=== PATIENT | female | born 1980 | race Caucasian/White ===

== ENCOUNTER 2021-04-20 16:43 | Emergency (ER) | payer MEDICAID, OTHER, SELFPAY ==
--- NOTE | ~2021-04-20 | CT_ITS ---
EXAMINATION: CT ABDOMEN AND PELVIS WITHOUT CONTRAST CLINICAL INFORMATION: Right-sided flank COMPARISON: None TECHNIQUE: Multidetector volumetric imaging was performed from the superior aspect of the liver through the pubic symphysis. Sagittal and coronal reformatted images were obtained on the technologist's workstation. This CT examination was performed using dose optimization techniques as appropriate, variously including the following: *Automated exposure control *Adjustment of mA and/or kV according to patient size (this includes techniques or standardized protocols for targeted exams where dose is matched to indication/reason for exam; i.e. extremities or head) *Use of iterative reconstruction technique DLP: 300 mGy-cm FINDINGS: LUNG BASES: The visualized lung bases are unremarkable. LIVER, GALLBLADDER, AND BILIARY TREE: The liver is mildly enlarged measuring 17.2 cm in greatest dimension but normal in shape and attenuation. No focal hepatic lesion or biliary ductal dilatation is present. The gallbladder is unremarkable with no evidence of radiopaque gallstones, gallbladder wall thickening, or obvious pericholecystic inflammatory changes. PANCREAS: Unremarkable. SPLEEN: Unremarkable. ADRENAL GLANDS: Unremarkable. KIDNEYS AND URETERS: The kidneys are normal in size, shape, and attenuation. No hydronephrosis, hydroureter, or calculi seen. No perinephric stranding. BLADDER: Unremarkable. GASTROINTESTINAL TRACT: The small and large bowel are unremarkable aside from some scattered colonic diverticula without diverticulitis. The appendix is unremarkable. ABDOMINAL WALL: No significant hernia is appreciated. LYMPH NODES: No retroperitoneal lymphadenopathy VASCULAR: Unremarkable. PELVIC VISCERA: An anteverted uterus is present. An abnormal adnexal mass is not seen. Benign water density cyst is noted in the left ovary. OSSEOUS STRUCTURES: Unremarkable. CT/CT abdomen pelvis wo con IMPRESSION: No significant abnormality is seen to account for the patient's right-sided flank pain. Incidental findings as described above. Fleischner guidelines were followed.
[2021-04-20 18:05] VITALS: BP 108/69; PULSE 93; RESP 18; TEMP 36.8; O2SAT 100; BMI 19.5
[2021-04-20 19:20] LABS: Appearance Urine CLEAR; Color Urine YELLOW; Glucose Urine UA NEG (NEG); Leukocyte Esterase Urine 3+ (NEG); Nitrite Urine NEG (NEG); UACC Culture Trigger YES; Urine Blood 2+ (NEG); Urine Ketones 15 MG/DL (NEG); Urine Protein NEG (NEG-TRACE)
[2021-04-20 19:29] LABS: WBC Urine TNTC /HPF (0-4)
[2021-04-20 19:30] LABS: Bacteria Urine 2+ /LPF; Squamous Epithelial Cell Urine TRACE /LPF
[2021-04-20 19:38] LABS: COVID-19 Test Negative (Negative)
--- NOTE | 2021-04-20 20:36 | ED_ITS ---
HPI - Female Genitourinary General Chief complaint: Urogenital-Female Stated complaint: fever/ migrane Time Seen by Provider: 04/20/21 20:09 Source: patient Mode of arrival: ambulatory Limitations: no limitations History of Present Illness HPI Narrative: 40-year-old female no known medical history presents to the emergency department with complaints of fevers, chills, right-sided flank pain, urinary frequency, ur gency, dysuria x1 week. Patient tells me that her urine has also been a darker color than usual. She reports burning with urination, and urgency. She also reports right-sided flank pain nonradiating, severe an intermittent nature. She has no history of kidney stones. She tells me that she feels as though she had a fever however she did not have a thermometer to take her temperature. She does report subjective chills. She tells me overall she has not been feeling good. She tells me that she has been drinking a lot of water which seems to be helping her urinary burning however it is still present. She denies chest pain, shortness of breath, nausea, vomiting, abdominal pain, weakness, lethargy, vaginal bleeding, vaginal discharge. No concerns for STDs or per patient. MD elicited complaint: dysuria Onset (ago): week(s) (1) Female Urogenital Radiation: Non-Radiating and R Flank Severity scale (1-10): 10 Quality of pain: stabbing Consistency: intermittent Vaginal discharge: none Vaginal bleeding: none Urinary symptoms: Dysuria, Urgency and Frequency Exacerbating factors: none Relieving factors: other (drinking alot of water ) Associated symptoms: denies other symptoms Treatment prior to arrival: none Sexual activity: Yes Patient : No Related Data Previous Rx's Medication Instructions Recorded cefuroxime axetil 250 mg tablet 250 mg PO BID 7 Days #14 tab 04/20/21 Allergies Allergy/AdvReac Type Severity Reaction Status Date / Time No Known Allergies Allergy Verified 04/20/21 18:05 Review of Systems Review of Systems: Constitutional : No Weight loss, + Fever, + Chills, + Fatigue, + Malaise ENT/Mouth : No sore throat, No Rhinorrhea Eyes: No Eye Pain, No Swelling, No Redness Cardiovascular : No Chest Pain, No SOB, No Dyspnea on Exertion, No Orthopnea, No Edema, No Palpitations Respiratory : No Cough, No Sputum, No Wheezing Gastrointestinal : No Nausea, No Vomiting, No Diarrhea, No Constipation, No a bdominal Pain, No Hematochezia, No Melena Genitourinary : + Dysuria, + Urinary Frequency, No Hematuria, Musculoskeletal : No joint pain, No Myalgias, No Joint Swelling, + right sided flank pain Skin : No Skin Lesions, No rash Neuro : No Weakness, No Numbness, No Dizziness, No Headache Psych : No Anxiety/Panic, No Depression All other systems reviewed and are negative Yes all other systems are reviewed and are negative [facility] Past Medical History Attestation statement: The following information was validated with the patient. Source: old records reviewed and nursing notes reviewed Medical History (Updated 04/20/21 @ 20:42 by JOHN Goodson) Headache No pertinent past medical history Social History Social History Advance Directives: No Advance Directives Information Provided: Yes Patient : No Physical Exam Vital Signs: Vital Signs: Last Vital Signs Temp 98.2 F 04/20/21 18:05 Pulse 93 04/20/21 18:05 Resp 18 04/20/21 18:05 BP 108/69 04/20/21 18:05 Pulse Ox 100 04/20/21 18:05 BMI result Body Mass Index 19.5 VSS Appearance: Alert.? Oriented X3.? No acute distress.? Head: Normocephalic, atraumatic, no step-offs or deformities Eyes: Pupils equal, round and reactive to light.? ENT: Pharynx normal.? Neck: Normal inspection.? Neck supple.? CVS: Normal heart rate and rhythm.? Pulses normal.? Respiratory: No respiratory distress.? Breath sounds normal.? Abdomen: Soft and nontender.? Skin: Skin warm and dry.? Normal skin color.? Normal skin turgor.? Extremities: No lower extremity edema.? No calf ttp. 5/5 strength to bilateral upper and lower extremities Back: No midline tenderness, no C-spine tenderness, full range of motion, + mild discomfort over right flank with palpation Neuro: Oriented X 3.? No motor deficit.? No sensory deficit. CN 2-12 intact Course Reevaluation(s) Reevaluation #1: Patient's urine with a UTI. Will give Ceftin 250 mg p.o. b.i.d. x7 days. ABHAY negative. Labs and imaging pending. Clarified with patient if she has a headache she tells me she has a headache every day of her life. Today she has a mild headache it feels like her typical. No vision changes, dizziness, disequilibrium, no neck pain. She tells me this feels like her typical headache, no changes. At this time CT of the head is not needed. Denies trauma to the area. Not on blood thinners. Time: 20:41 Reevaluation #2: CT of abdomen and pelvis with no acute findings to explain patient's symptoms. At this time patient will be discharged home on Ceftin 250 mg p.o. b.i.d. x7 days to treat UTI. Advised to return with new or worsening symptoms. Time: 21:05 MDM - Female Genitourinary MDM Narrative Medical decision making narrative: 2037 40 yo f presents with symptoms consistent with UTI x1 week. Physical examination significant for right-sided flank pain. Vital signs stable. Plan at this time is to obtain imaging, labs, urine, urine . Will rule out pyelonephritis, UTI. Medical Records Attestation: I reviewed the patient's medical records. Lab Data Attestation: I reviewed the patient's lab results. Result diagrams: 04/20/21 20:41 04/20/21 20:41 Labs: Lab Results 04/20/21 04/20/21 04/20/21 Range/Units 19:09 19:09 20:41 WBC 8.5 (4.8-10.8) X10*3/uL RBC 3.86 L (4.20-5.50) X10*6/uL Hgb 11.8 L (12.0-16.0) g/dl Hct 35.4 L (37.0-47.0) % MCV 91.7 (80.0-98.0) fL MCH 30.6 (27.0-33.0) pg MCHC 33.3 (31.0-35.0) g/dl RDW 12.3 (11.0-16.0) % Plt Count 165 (160-400) X10*3/uL MPV 11.3 (9.4-12.3) fL Immature Gran % (Auto) 0.4 (0.0-0.4) % Neut % (Auto) 71.9 (45-73) % Lymph % (Auto) 15.6 L (20-40) % [place] % (Auto) 11.5 H (2-11) % Eos % (Auto) 0.4 (0-4) % Baso % (Auto) 0.2 (0-2) % Lymph # (Auto) 1.3 (1.2-4.9) X10*3/uL [place] # (Auto) 1.0 (0.1-1.2) X10*3/uL Eos # (Auto) 0.0 (0.0-0.4) X10*3/uL Baso # (Auto) 0.0 (0.0-0.2) X10*3/uL Abs Immat Gran (auto) 0.03 (0.00-0.03) X10*3/uL Absolute Neuts (auto) 6.1 (2.0-8.3) x10*3/uL Absolute Nucleated RBC 0.000 (0.0-0.012) X10*3/uL Nucleated RBC % (auto) 0.0 (0.0-0.2) /100WBC Sodium (135-145) mmol/L Potassium (3.3-5.1) mmol/L Chloride (96-108) mmol/L Carbon Dioxide (22-29) mmol/L Anion Gap (12-20) BUN (9-16) mg/dL Creatinine (0.5-1.4) mg/dL Estim Creat Clear Calc Estimated GFR Random Glucose (60-115) mg/dL Calcium (8.4-10.2) mg/dL Total Bilirubin (0.0-1.0) mg/dL AST (5-31) U/L ALT (0-31) U/L Alkaline Phosphatase (39-117) U/L Total Protein (6.5-8.0) g/dL Albumin (3.5-5.0) g/dL Beta HCG, Quant mIU/mL Urine Color YELLOW Urine Appearance CLEAR Urine pH 6.0 (5.0-8.0) Ur Specific [place] 1.010 (1.005-1.025) Urine Protein NEG (NEG-TRACE) MG/DL Urine Glucose (UA) NEG (NEG) MG/DL Urine Ketones 15 (NEG) MG/DL Urine Blood 2+ H (NEG) Urine Nitrite NEG (NEG) Ur Leukocyte Esterase 3+ H (NEG) Urine RBC 10-14 H (0) /HPF Urine WBC TNTC H (0-4) /HPF Ur Squamous Epith Cells TRACE /LPF Urine Bacteria 2+ /LPF COVID-19 ([facility]) Negative (Negative) COVID-19 Clin Com See Note 04/20/21 Range/Units 20:41 WBC (4.8-10.8) X10*3/uL RBC (4.20-5.50) X10*6/uL Hgb (12.0-16.0) g/dl Hct (37.0-47.0) % MCV (80.0-98.0) fL MCH (27.0-33.0) pg MCHC (31.0-35.0) g/dl RDW (11.0-16.0) % Plt Count (160-400) X10*3/uL MPV (9.4-12.3) fL Immature Gran % (Auto) (0.0-0.4) % Neut % (Auto) (45-73) % Lymph % (Auto) (20-40) % [place] % (Auto) (2-11) % Eos % (Auto) (0-4) % Baso % (Auto) (0-2) % Lymph # (Auto) (1.2-4.9) X10*3/uL [place] # (Auto) (0.1-1.2) X10*3/uL Eos # (Auto) (0.0-0.4) X10*3/uL Baso # (Auto) (0.0-0.2) X10*3/uL Abs Immat Gran (auto) (0.00-0.03) X10*3/uL Absolute Neuts (auto) (2.0-8.3) x10*3/uL Absolute Nucleated RBC (0.0-0.012) X10*3/uL Nucleated RBC % (auto) (0.0-0.2) /100WBC Sodium 138 (135-145) mmol/L Potassium 3.7 (3.3-5.1) mmol/L Chloride 103 (96-108) mmol/L Carbon Dioxide 26 (22-29) mmol/L Anion Gap 13 (12-20) BUN 7 L (9-16) mg/dL Creatinine 0.73 (0.5-1.4) mg/dL Estim Creat Clear Calc 93.7 Estimated GFR > 60 Random Glucose 95 (60-115) mg/dL Calcium 8.9 (8.4-10.2) mg/dL Total Bilirubin 1.0 (0.0-1.0) mg/dL AST 12 (5-31) U/L ALT 19 (0-31) U/L Alkaline Phosphatase 63 (39-117) U/L Total Protein 7.1 (6.5-8.0) g/dL Albumin 4.4 (3.5-5.0) g/dL Beta HCG, Quant < 2 mIU/mL Urine Color Urine Appearance Urine pH (5.0-8.0) Ur Specific [place] (1.005-1.025) Urine Protein (NEG-TRACE) MG/DL Urine Glucose (UA) (NEG) MG/DL Urine Ketones (NEG) MG/DL Urine Blood (NEG) Urine Nitrite (NEG) Ur Leukocyte Esterase (NEG) Urine RBC (0) /HPF Urine WBC (0-4) /HPF Ur Squamous Epith Cells /LPF Urine Bacteria /LPF COVID-19 ([facility]) (Negative) COVID-19 Clin Com Critical Care Time Critical Care Time Critical Care Time: No Discharge Plan Discharge Clinical Impression: Urinary tract infection Patient Disposition: Home, Self-Care Instructions: Urinary Tract Infection in Women (DC) Additional Instructions: Take your medications as prescribed. If you were prescribed antibiotics today, it is important that you take your medication to their entirety, do not skip any doses, do not finish them early. Follow-up with your primary care provider this week. Such as chest pain, shortness of breath, fevers, chills, nausea, vomiting, abdominal pain, headache, dizziness, vision changes Return to the emergency department with new or worsening symptoms. In case of emergency call 911 Mellette andrzej medicamentos seg?n lo prescrito. Si le recetaron antibi?ticos hoy, es importante que tome tomlinson medicamento en tomlinson totalidad, no se salte ninguna dosis, no los termine antes de tiempo. Seguimiento con tomlinson proveedor de atenci?n primaria esta semana. [place] dolor de pecho, dificultad para respirar, fiebre, escalofr?os, n?useas, v?mitos, dolor abdominal, dolor de mal, mareos, cambios en la visi?n Regrese al departamento de emergencias con s?ntomas nuevos o que empeoran. En lang de emergencia llama al 911 Prescriptions: New cefuroxime axetil 250 mg tablet 250 mg PO BID 7 Days Qty: 14 0RF Referrals: Physician,None [Primary Care Provider] - 2 days Stand Alone Forms: Work/School Release
[2021-04-20 20:59] LABS: MANUAL DIFF FLAG NO
[2021-04-20 21:01] LABS: Basophils Percent Auto 0.2 % (0-2); Eosinophils Percent Auto 0.4 % (0-4); Hematocrit 35.4 % (37.0-47.0); Hemoglobin 11.8 g/dl (12.0-16.0); Imm Gran Abs Auto 0.03 X10*3/uL (0.00-0.03); Imm Gran Pct Auto 0.4 % (0.0-0.4); Lymphocytes Absolute Auto 1.3 X10*3/uL (1.2-4.9); Lymphocytes Percent Auto 15.6 % (20-40); Mean Corpuscular HGB Conc 33.3 g/dl (31.0-35.0); Mean Corpuscular Hemoglobin 30.6 pg (27.0-33.0); Mean Corpuscular Volume 91.7 fL (80.0-98.0); Mean Platelet Volume 11.3 fL (9.4-12.3); Monocytes Percent Auto 11.5 % (2-11); Neutrophils Absolute Auto 6.1 x10*3/uL (2.0-8.3); Neutrophils Percent Auto 71.9 % (45-73); Platelet Count 165 X10*3/uL (160-400); Red Blood Count 3.86 X10*6/uL (4.20-5.50); Red Cell Distribution Width 12.3 % (11.0-16.0); White Blood Count 8.5 X10*3/uL (4.8-10.8)
[2021-04-20 21:14] LABS: Alanine Aminotransferase 19 U/L (0-31); Albumin Level 4.4 g/dL (3.5-5.0); Alkaline Phosphatase 63 U/L (39-117); Anion Gap 13 (12-20); Aspartate Amino Transferase 12 U/L (5-31); Blood Urea Nitrogen 7 mg/dL (9-16); Calcium 8.9 mg/dL (8.4-10.2); Carbon Dioxide 26 mmol/L (22-29); Chloride 103 mmol/L (96-108); Creatinine Clr Calc Pharmacy 93.7; Estimated Glomerular Filt Rate > 60; Glucose Random 95 mg/dL (60-115); Potassium 3.7 mmol/L (3.3-5.1); Sodium 138 mmol/L (135-145); Total Protein 7.1 g/dL (6.5-8.0)
[2021-04-20 21:28] LABS: HCG Quantitative < 2 mIU/mL
[2021-04-20 22:00] VITALS: BP 128/74; PULSE 82; RESP 16; TEMP 37.2; O2SAT 97
== END 2021-04-20 23:29 | disposition home or self-care (01) ==
PROVIDERS: Physician Assistant; Emergency Provider Internal Medicine
DX: N39.0 Urinary tract infection, site not specified (principal); N39.41 Urge incontinence; R50.9 Fever, unspecified; R30.0 Dysuria; R10.9 Unspecified abdominal pain; Z20.822 Contact with and (suspected) exposure to COVID-19; Z79.899 Other long term (current) drug therapy
CPT/HCPCS: 36415; 74176; 80053; 81001; 84702; 85025; 87086; 87088; 87186; 87635; 99284

== ENCOUNTER 2024-03-08 15:59 | Outpatient (AMB) | payer OTHER, SELFPAY ==
[2024-03-08 16:04] VITALS: BP 108/70; PULSE 79; O2SAT 99; BMI 22.6
--- NOTE | 2024-03-08 16:04 | A.OFFPC_ITS ---
Vital Signs 03/08/24 16:04 Height 5 ft 7 in Weight 144 lb BMI 22.6 BP 108/70 Blood Pressure Location Lt brachial Position Sitting Pulse 79 Pulse Source Pulse Oximeter Pulse Oximetry (%) 99 Oxygen Delivery Method Room Air Intake Visit Reasons: establish care Pigment Making Supervisor Required: Yes Pigment Making Supervisor Language: Nepali Accompanied by: Self / Same As Patient Allergies No Known Allergies Allergy (Verified 03/08/24 16:13) Medication List - Last Reconciled 03/08/24 by Rowan Astudillo PA-C No Known Home Meds Tobacco use date assessed: 03/08/24 Dental Screening Dental Screen Date: 03/08/24 Did you have a dental visit in the last 12 months?: Yes Did you have a dental problem in the last 6 months where you did not have access to dental care?: No Was dental information given to patient?: Patient has dentist HPI establish care HPI Details 43-year-old female coming to the office for the 1st time. Patient is not known to [facility] last 3 [place]. catastrophe claims supervisor was used for the duration of this visit. Patient previously has a PCP at [facility] last seen October 2023. She was seen gynecology through [facility] as well and had a Pap smear last year and a Nexplanon placed in 2021. She has had a mammogram and is up-to-date and we will be due later this month. She does mentioned having a small nodule on the right breast that is occasionally painful and does not grow a shrink. She has never had an abnormal mammogram in the past but is concerned because she has significant breast pain that has been going on for several years. She is not having pain at this moment. She also has concerns for easy bruising in the legs that take long periods of time to resolve. Also complaining varicose veins and has a history of a ablation to treat these veins. She also mentions having occasional headaches around her menses. [facility] Medical History (Updated 03/08/24 @ 16:30 by Rowan Astudillo PA-C) Headache No pertinent past medical history Surgical History History of Family History Mother No problems noted. Father No problems noted. Social History Housing: Apartment Alcohol intake: current Alcohol intake frequency: holidays/special occasions only Alcohol type: beer Patient Tobacco Use Status: Former Tobacco user Tobacco use type: Cigarette Smoked in Last 30 Days: No e-Cigarette/Vaping Use: Never Used Second Hand Smoke Exposure: No service: No Current occupational status: employed Current occupational exposures/hazards: No Cognitive needs: No Hearing needs: No Vision needs: Yes Female Reproductive History Menstrual control method: implanted (Nexplanon) Total pregnancies: 2 Full term: 2 History of abnormal pap smear: No History of STI: No Questionnaire PHQ-9 Over the last 2 weeks, how often have you been bothered by any of the following problems? 1. Little interest or pleasure in doing things: not at all 2. Feeling down, depressed, or hopeless: not at all 3. Trouble falling or staying asleep, or sleeping too much: not at all 4. Feeling tired or having little energy: not at all 5. Poor appetite or overeating: not at all 6. Feeling bad about yourself - or that you are a failure or have let yourself or your family down: not at all 7. Trouble concentrating on things, such as reading the newspaper or watching television: not at all 8. Moving or speaking so slowly that other people could have noticed. Or the opposite - being so fidgety or restless that you have been moving around a lot more than usual: not at all 9. Thoughts that you would be better off or of hurting yourself in some way: not at all Total score: 0 Depression Screening Interpretation: Negative Depression Screening Done: Yes Source: Developed by Drs. Leighton Swenson, Keeley Groves, Gaurav Ruiz and colleagues, with an educational charles from [employer]. Thrive Questionnaire Date Thrive assessed: 03/08/24 I am a: Patient What is your living situation today?: I have a steady place to live Within the past 12 months, did the food you bought not last and you didn't have the money to get more?: Never true Within the past 12 months, did you worry whether your food would run out before you got money to buy more?: Never true Do you have trouble paying for medicines?: No Do you have trouble getting transportation to medical appointments?: No Do you have trouble paying your heating and electricity bill?: No Do you have trouble taking care of your child, family member or friend?: No Do you have trouble with day-to-day activities such as bathing, preparing meals, shopping, managing finances, etc.?: No Are you currently unemployed and looking for a job?: No Are you interested in more education?: Yes Please select the resources that you would like help with: Food Currently or been in a relationship where the following occur: No concerns reported THRIVE Score: 0 AUDIT C Alcohol Use Questionnaire (AUDIT-C) 1. How often do you have a drink containing alcohol?: Monthly or less 2. How many drinks containing alcohol do you have on a typical day when you are drinking?: 1 or 2 3. How often do you have six or more drinks on one occasion?: Never Total Score: 1 CRUZITO-7 AMB Questionnaire CRUZITO-7 Date CRUZITO - 7 assessed: 03/08/24 Feeling nervous, anxious, or on edge: 0 = Not at all Not being able to stop or control worryin = Not at all Worrying too much about different things: 0 = Not at all Trouble relaxin = Not at all Being so restless that it is hard to sit still: 0 = Not at all Becoming easily annoyed or irritable: 0 = Not at all Feeling afraid as if something awful might happen: 0 = Not at all Total CRUZITO-7 score (0-4 normal; 5-9 mild; 10-14 moderate; 15-21 severe): 0 Source: Developed by Drs. Leighton Swenson, Keeley Groves, Gaurav Ruiz and colleagues, with an educational charles from [employer]. Review of Systems Const Denies body aches, Denies fatigue, Denies fever(s), Denies frequent falls, Reports headache(s) and Denies weakness Eyes Reports no additional complaints, Denies change in vision and Reports requires corrective lenses ENT Denies dysphagia, Denies dizziness, Denies facial pain, Reports headache(s), Denies nasal congestion and Denies odynophagia Card Denies chest pain, Denies syncope, Denies irregular heart rhythm, Denies leg edema, Denies lightheadedness and Denies dyspnea Resp Denies cough and Denies dyspnea GI Denies abdominal pain, Denies constipation, Denies dysphagia, Denies dyspepsia, Denies diarrhea, Denies nausea, Denies odynophagia and Denies vomiting Denies urinary frequency, Denies dysuria, Denies urinary hesitancy and Denies urinary urgency Musc Reports no additional complaints Skin/Breast Reports system reviewed and no additional complaints, except as documented Neuro Denies dizziness, Denies syncope, Denies frequent falls, Reports headache(s) and Denies weakness Psych Reports no additional complaints Endo Denies fatigue Shane/Lymph Reports easy bruising Physical exam (Primary Care) Vital Signs: Last Vital Signs Pulse 79 03/08/24 16:04 BP 108/70 03/08/24 16:04 Pulse Ox 99 03/08/24 16:04 Oxygen Delivery Method Room Air 03/08/24 16:04 BMI result Body Mass Index 22.6 Tobacco/Smoking Status: Tobacco use Status Tobacco use date assessed 03/08/24 03/08/24 16:10 Patient Tobacco Use Status Former Tobacco user 03/08/24 16:10 Tobacco use type Cigarette 03/08/24 16:10 e-Cigarette/Vaping Use Never Used 03/08/24 16:10 PHQ-9: PHQ-9 Score PHQ-9: Total score 0 03/09/24 09:01 Depression Screening Interpretation: Negative Thrive Assessment: Date of Thrive Assessment Date Thrive assessed 03/08/24 03/08/24 16:10 Currently or been in a relationship where the following occur: No concerns reported Const General: cooperative, healthy appearing, comfortable and no acute distress Orientation/consciousness: patient oriented x3 HENMT Head: Yes normocephalic Ears: hearing grossly normal bilaterally General nose exam: Normal external nose present Eyes General: appearance normal, both eyes and all related structures Conjunctivae: conjunctivae normal Neck Neck: Yes full ROM and Yes no lymphadenopathy Chest Other: No tenderness to palpation over bilateral breasts and no palpated nodules. Resp Effort & Inspection: normal respiratory effort Auscultation: clear to auscultation bilaterally, no crackles, no rales, no rhonchi and no wheezes Cardio Rate: regular rate Rhythm: regular rhythm Skin General skin exam: no rashes or lesions noted Neuro General: patient oriented x3 Gait exam (Neuro): Normal gait present Extrem Other: Small bruises on bilateral legs in various stages of healing. Mild Varicosities of bilateral extremities General: Yes normal to inspection, Yes full ROM and No edema Psych Affect: normal affect Attitude: cooperative Insight: Good insight present (Psych) Judgement: Good judgement present (Psych) Coding Level of Care Code New Pt Level 4 (89491) Diagnoses Breast pain N64.4 Varicose veins of both lower extremities I83.93 Easy bruising R23.3 Headache R51.9 Assessment & Plan Assessment & Plan (1) Breast pain: Code(s): N64.4 - Mastodynia Category: Medical Plan: Patient is due for mammogram severe however did inform patient we will do a diagnostic mammogram with ultrasound of the right breast for further evaluation. (2) Varicose veins of both lower extremities: Code(s): I83.93 - Asymptomatic varicose veins of bilateral lower extremities Category: Medical Plan: Patient complaining of varicose veins on bilateral lower extremities states he will occasionally itch. Advised patient to keep area well hydrated with topical creams and lotions. Advised the use of compression stockings if she will be standing for long periods of time and elevate the legs at the end of the day. Also encouraged regular exercise. On exam varicosities are very mild we will try conservative measures before referral to vascular surgery (3) Easy bruising: Code(s): R23.3 - Spontaneous ecchymoses Category: Medical Plan: Patient complaining of easy bruising states she does have a family history of bleeding disorder in her mother. Ordered for blood work for further evaluation and can consider referral to Hematology. (4) Headache: Code(s): R51.9 - Headache, unspecified Category: Medical Plan: Patient complaining of occasional headaches around menses using Tylenol and ibuprofen as needed for pain. Continue with this pain medication and follow up if symptoms worsen or become more frequent. Plan This note was constructed using voice recognition software. While every effort has been made to ensure accuracy and mgmt analyst, still areas may have been included sometimes these areas may affect the content or meeting of the given symptoms. Total time spent caring for the patient today was 30 minutes. This includes time spent before the visit reviewing the chart, time spent during the visit, and time spent after the visit and documentation. Orders: Orders US breast RT complete 03/08/24 N64.4 - Mastodynia Mixing Study (PT/PTT) 03/08/24 R23.3 - Spontaneous ecchymoses Vitamin B12 and Folate 03/08/24 Z00.00 - Encounter for general adult medical examination without abnormal findings Lipid Panel 03/08/24 Z13.220 - Encounter for screening for lipoid disorders MM tomosynthesis diagnostic RT 03/08/24 N64.4 - Mastodynia Prothrombin Time INR 03/08/24 R23.3 - Spontaneous ecchymoses Complete Blood Count Auto Diff 03/08/24 Z00.00 - Encounter for general adult medical examination without abnormal findings Comprehensive Met. Panel 03/08/24 Z00.00 - Encounter for general adult medical examination without abnormal findings Free T4 (Free Thyroxine) 03/08/24 Z00.00 - Encounter for general adult medical examination without abnormal findings TSH reflex Free T4 03/08/24 Z00.00 - Encounter for general adult medical examination without abnormal findings Vitamin D 25-OH Total 03/08/24 Z00.00 - Encounter for general adult medical examination without abnormal findings BILLY Reflex Titer and Pattern 03/08/24 R23.3 - Spontaneous ecchymoses Referrals PSYCHIATRIC CLINICAL NURSE SPECIALIST Referral Z12.4 - Encounter for screening for malignant neoplasm of cer vix Medications: Discontinued cefuroxime axetil Discontinued Reason: Patient Completed Course 250 mg PO BID 7 days 14 tabs 0RF
== END 2024-03-08 16:39 | disposition home or self-care (01) ==
DX: N64.4 Mastodynia (principal); I83.93 Asymptomatic varicose veins of bilateral lower extremities; R23.3 Spontaneous ecchymoses; R51.9 Headache, unspecified

== ENCOUNTER → 2024-03-08 15:59 | Outpatient (BNVA) | payer OTHER, SELFPAY | DX: N64.4 Mastodynia (principal); I83.93 Asymptomatic varicose veins of bilateral lower extremities; R23.3 Spontaneous ecchymoses; R51.9 Headache, unspecified | CPT/HCPCS: 99202 ==

== ENCOUNTER 2024-03-23 06:04 | Outpatient (REF) | payer OTHER, SELFPAY ==
[2024-03-23 06:19] LABS: MANUAL DIFF FLAG NO
[2024-03-23 07:03] LABS: Basophils Percent Auto 0.6 % (0-2); Eosinophils Absolute Auto 0.3 X10*3/uL (0.0-0.4); Eosinophils Percent Auto 4.5 % (0-4); Hemoglobin 13.3 g/dl (12.0-16.0); Imm Gran Abs Auto 0.03 X10*3/uL (0.00-0.03); Imm Gran Pct Auto 0.5 % (0.0-0.4); Lymphocytes Absolute Auto 1.6 X10*3/uL (1.2-4.9); Lymphocytes Percent Auto 25.3 % (20-40); Mean Corpuscular HGB Conc 33.3 g/dl (31.0-35.0); Mean Corpuscular Hemoglobin 30.2 pg (27.0-33.0); Mean Corpuscular Volume 90.7 fL (80.0-98.0); Mean Platelet Volume 10.7 fL (9.4-12.3); Monocytes Absolute Auto 0.5 X10*3/uL (0.1-1.2); Monocytes Percent Auto 7.4 % (2-11); Neutrophils Absolute Auto 3.9 x10*3/uL (2.0-8.3); Neutrophils Percent Auto 61.7 % (45-73); Platelet Count 181 X10*3/uL (160-400); Red Blood Count 4.41 X10*6/uL (4.20-5.50); Red Cell Distribution Width 12.7 % (11.0-16.0); White Blood Count 6.3 X10*3/uL (4.8-10.8)
[2024-03-23 07:09] LABS: Prothrombin Time 11.9 SEC (10.9-12.4)
[2024-03-23 07:24] LABS: Partial Thromboplastin Time 32.7 SEC (26.0-36.8)
[2024-03-23 07:28] LABS: Alanine Aminotransferase 28 U/L (0-31); Albumin Level 4.5 g/dL (3.5-5.0); Alkaline Phosphatase 52 U/L (39-117); Anion Gap 10 (12-20); Aspartate Amino Transferase 21 U/L (5-31); Bilirubin Total 0.9 mg/dL (0.0-1.0); Blood Urea Nitrogen 12 mg/dL (9-16); Carbon Dioxide 23 mmol/L (22-29); Chloride 111 mmol/L (96-108); Cholesterol 188 mg/dL (<200); Estimated Glomerular Filt Rate > 60; Glucose Random 90 mg/dL (60-115); HDL Cholesterol 72 mg/dL (>40); LDL Cholesterol Calculated 106 mg/dL (<100); Potassium 4.3 mmol/L (3.3-5.1); Sodium 140 mmol/L (135-145); Total Protein 7.3 g/dL (6.5-8.0); Triglycerides 53 mg/dL (<150)
[2024-03-23 07:42] LABS: Free T4 (Free Thyroxine) 1.12 ng/dL (0.71-1.85); TSH reflex Free T4 1.35 uIU/mL (0.32-4.0)
[2024-03-23 07:51] LABS: Folate 12.1 ng/mL (> or = 4.0); Vitamin B12 622 pg/mL (200-900)
[2024-03-26 15:54] LABS: Anti Nuclear Antibody Screen NEGATIVE (NEGATIVE)
== END 2024-03-23 06:05 | disposition home or self-care (01) ==
LOC: HO.LAB 06:04
DX: Z00.00 Encounter for general adult medical examination without abnormal findings (principal); R23.3 Spontaneous ecchymoses; Z13.220 Encounter for screening for lipoid disorders
CPT/HCPCS: 36415; 80053; 80061; 82306; 82607; 82746; 84439; 84443; 85025; 85610; 85611; 85730; 85732; 86038

== ENCOUNTER 2024-04-26 13:30 | Outpatient (REF) | payer OTHER, SELFPAY ==
--- NOTE | ~2024-04-26 | US_ITS ---
EXAMINATION: MM DIAGNOSTIC DIGITAL BREAST TOMOSYNTHESIS, BILATERAL Limited right breast ultrasound. CLINICAL INFORMATION: Right breast pain and palpable lump. COMPARISON: Mammography: Comparison is made with relevant prior exams. TECHNIQUE: Digital breast mammography with tomosynthesis is performed in both the craniocaudal and mediolateral oblique views along with computer-aided detection (CAD). Limited right breast ultrasound. FINDINGS: The breasts are heterogeneously dense, which may obscure small masses (ACR BI-RADS breast composition Category c). Left: There are no significant masses, abnormal calcifications, or other abnormalities. Right: Triangular marker at the site of pain in the upper outer breast without underlying abnormality. BB palpable marker in the central outer breast at the site of palpable lump without underlying abnormality. No suspicious calcifications masses or other abnormal findings. Targeted color Doppler ultrasound demonstrates a vascular hypoechoic oval solid mass at 9:00 1 cm from nipple in the area the patient's palpable lump measuring 8 x 5 x 7 mm. There is an incidental oval hypoechoic located cyst versus solid mass at 7:00 2 cm from nipple measuring 5 x 4 x 2 mm. Otherwise scanning from 7-11 o'clock demonstrates normal fibroglandular breast tissue. Results are provided to the patient at time of visit by the technologist. US/US breast RT limited mamm only IMPRESSION: Left: Negative. Right: 1. Solid mass in the retroareolar region correlating with the patient's palpable lump. Recommend ultrasound-guided core needle biopsy at this time for confirmation. The findings and recommendations were discussed with the patient the procedure will be scheduled. 2. Solid mass versus complicated cyst at 7:00 2 cm from nipple. Recommend 6 month follow-up ultrasound for further evaluation of stability. ASSESSMENT: BI-RADS BI-RADS 4 - Suspicious finding RECOMMENDATION: Biopsy recommended This patient's information was entered into a reminder system with a target due date for their next mammogram. Electronically signed by: Darleen Baltazar DO 04/26/2024 03:05 PM MA[facility]
--- OUTSIDE RECORDS SUMMARY | 2024-04-26 16:08 | XMS_ITS | Clinical Summary ---
Author Organization [facility] Address [address] [place] [address] Care Team Providers Care Product Specialist Name Role Phone Ana Paula Grier PA-C Primary Care Provider + [phone] Source Comments PLEASE NOTE, if this patient is a minor, it may be UNLAWFUL to discuss sensitive information that is contained in these records (such as FAMILY PLANNING, MENTAL HEALTH or SUBSTANCE ABUSE) with the minor patient's parent or other person without the patient's specific authorization.[facility] Allergies No known active allergies Medications acetaminophen (TYLENOL 8 HOUR) 650 mg CR tabletIndications:Chr onic left shoulder pain Take 1 Tablet by mouth every 8 (eight) hours as needed for pain 60 Tablet 10/07/19 22 Active lidocaine (LMX) 4 % creamIndications: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 Apply topically as needed for pain 15 g 10/07/19 22 Active ibuprofen 800 mg tabletIndications:Dis location of temporomandibular joint, subsequent encounter Take 1 Tablet by mouth 3 (three) times daily as needed for pain 30 Tablet 05/23/19 24 Active aspirin-acetaminophen -caffeine (EXCEDRIN MIGRAINE) 250-250-65 mg per tabletIndications:Oth er migraine without status migrainosus, not intractable Take 1 Tablet by mouth every 6 (six) hours as needed for pain 30 Tablet 12/28/19 24 Active ciclopirox (PENLAC) 8 % solutionIndications:O nychomycosis Apply topically nightly at bedtime 6.6 mL 1 12/28/19 24 Active methocarbamoL (ROBAXIN) 500 mg tabletIndications:Mus freeman spasms of neck Take 1 Tablet by mouth 3 (three) times daily 20 Tablet 12/28/19 24 Active Active Problems Problem Noted Date Diagnosed Date Food insecurity 12/28/2023 Migraine without status migrainosus, not intract able 12/28/2023 Muscle spasms of neck 12/28/2023 Frequent UTI 12/27/2022 Nexplanon insertion 12/27/2022 Irregular periods 12/27/2022 Immunizations Name Administration Dates Next Due Flu, Preservative Free 11/10/2022 HPV 9 (Gardasil) 02/15/2023 Td(adult),2 Lf tetanus toxoid,preservative free 11/10/2022 Family History Medical History Relation Name Comments Thrombocytopenia Mother Relation Name Status Comments Brother Alive Father Alive Mother Sister Alive Social History Tobacco Use Types Packs/Day Years Used Date Smoking Tobacco: Never Smokeless Tobacco: Never Tobacco Cessation:Counseling Given: Yes Alcohol Use Standard Drinks/Week Comments Never 0 (1 standard drink = 0.6 oz pur e alcohol) Social Connections Answer Date Recorded Connectedness 1 12/28/2023 Financial Resource Strain Answer Date R ecorded Financial Resource Strain 1 2023 Stress Answer Date Recorded Stress 1 12/28/2023 Physical Activity Answer Date Recorded Physical Activity 0 09/02/2021 Food Insecurity Answer Date Recorded Food 2 12/28/2023 Transportation Needs Answer Date Record ed Transportation 1 12/28/2023 Housing Stability Answer Date Recorded Housing 1 12/28/2023 Safety and Environment Answer Date Gray rded Safety 1 12/28/2023 Utilities Answer Date Recorded Utilities 2 12/28/2023 Employment Answer Date Recorded Stress 0 10/06/2021 Comments No Sex and Gender Information Value Date Recorded Sex Assigned at Female 10/06/2021 6:52 AM PDT Legal Sex Female 8:36 AM PDT Gender Identity Female 10/06/2021 6:52 AM PDT Sexual Orientation Straight 10/06/2021 6: 52 AM PDT Last Filed Vital Signs Vital Sign Reading Time Taken Comments Blood Pressure 108/68 12/28/2023 4:03 PM EDT Pulse 64 12/28/2023 4:03 PM EDT Temperature 37.2 ??C (98.9 ??F) 12/28/2023 4:03 PM ED T Respiratory Rate 16 12/28/2023 4:03 PM EDT Oxygen Saturation 92% 12/28/2023 4:03 PM EDT Inhaled Oxygen Concentration - - Weight 64.8 kg (142 lb 12.8 oz) 12/28/2023 4:03 PM EDT Height 167.6 cm (5' 6 ) 12/28/2023 4:03 PM EDT Body Mass Index 23.05 12/28/2023 4:03 PM EDT Plan of Treatment Upcoming Encounters Date Type Department Care Team (Late st Contact Info) Description 06/11/2024 3:40 PM EDT Office Visit [address] [phone] Elise Puga [address] [place] [address] Health Maintenance Due Date Last Done Comments HPV Screening 1982 Imm-Hepatitis B (1 of 3 - 19+ 3-dose series) 2001 Imm-DTaP/Tdap/Td (1 - Tdap) 11/11/2022 11/10/2022 [id number] (2 - 2023- season) 2023 02/04/2022 Annual Preventive Care Visit 02/16/2024 02/15/2023 Alcohol and Drug Screen 02/29/2024 05/23/19 24, 11/10/2022, 10/06/2021 Depression Annual Screen 02/29/2024 05/23/2023, 10/29 Breast Cancer Screening (Mammogram) 03/22/2024 03/22/2023, 10/26/2021 Imm-Influenza (#1) 2024 11/10/2022 Postponed from 10/30/2023 (Patient postponement) Dental BW 09/27/2024 09/26/2023, 03/01, 09/16/2022, Additional history exists Dental Examination 09/27/2024 09/26/2023, 0 03/24/2023, 09/16/2022, Additional history exists Dental Perio Charting 09/27/2024 09/26/2023 , 03/24/2023, 09/16/2022, Additional history exists Dental Prophy 09/27/2024 09/26/2023, 03/01, 09/16/2022, Additional history exists Diabetes Screening 10/06/2024 10/06/2021, 10/06/2021 Hypertension Screening (#1) 12/27/2024 Relationship Safety Screening/Counseling 12/27/2024 12/28/2023, 11/10/2022, 10/06/2021 Tobacco Screening 12/27/2024 12/28/2023 Pap Smear 02/15/2026 02/15/2023 Lipid Screening 10/06/2026 10/06/2021 Cervical Cancer Screening 02/16/2028 Pap + HPV 02/16/2028 Dental FMX/Pano 09/27/2028 09/26/2023, 09/10/2021 HIV Screening Completed 10/06/2021 Hepatitis C Screening Completed 10/06/2021 Cervical Ablation/Cold-Knife Conization Discontinued Cervical Cryotherapy Discontinued Colposcopy Discontinued Endometrial Biopsy Discontinued Excision/Leep Discontinued HPV Genotyping Discontinued Vaginal Pap Discontinued Vulvoscopy Discontinued Procedures Procedure Name Priority Date/Time Associated Diagnosis Comments COMP PERIODONTAL EVALUATION - NEW/EST PATIENT Routine 09/26/2023 4:20 PM EDT Encounter for dental examination [facility] PANORAMIC RADIOGRAPHIC IMAGE Routine 09/26/2023 4:20 PM EDT Encounter for dental examination [facility] Defective dental church BITEWINGS - FOUR RADIOGRAPHIC IMAGES Routine 09/26/2023 4:20 PM EDT Encounter for dental examination [facility] PROPHYLAXIS - ADULT Routine 09/26/2023 4 :20 PM EDT Encounter for dental examination [facility] PERIODIC ORAL EVALUATION ESTABLISHED PATIENT Routine 09/26/2023 4:20 PM EDT Encounter for dental examination [facility] REFERRAL FOR MAMMOGRAM Routine 03/22/2023 3:00 AM EST Screening mammogram for breast cancer THINPREP IMAGING PAP REFLEX HPV MRNA E6/E7, CT/GT (Q) Routine 02/15/2023 4:01 PM EST Encounter for Papanicolaou smear of vagina as part of routine gynecological examination Encounter for screening for human papillomavirus (HPV) HIV 1/2 AG & AB W/RFLX (4TH GEN) Routine 10/06/2021 10:30 AM EDT Encounter to establish care HEPATITIS C AB W/RFLX HCV RNA, QT, RT PCR Routine 10/06/2021 10:30 AM EDT Encounter to establish care COMPREHENSIVE METABOLIC PANEL Routine 10/06/2021 10:30 AM EDT Encounter to establish care LIPIDS W RFLX TO DIRECT LDL Routine 10/06/2021 10:30 AM EDT Encounter to establish care from Last 3 Months or Most Recently Relevant to Health Maintenance Results * REFERRAL FOR MAMMOGRAM (03/22/2023 3:00 AM EST) 03/22/2023 3:00 AM EST us Slmi Quesada MD IMG RFL MAMMO Edited Result - Final * THINPREP IMAGING PAP REFLEX HPV MRNA E6/E7, CT/GT (Q) (02/15/2023 4:01 PM EST) CHLAMYDIA TRACHOMATIS RNA, TMA NOT DETECTED NOT DETECTED [facility] NEISSERIA GONORRHOEAE RNA, TMA NOT DETECTED NOT DETECTED [facility] COMMENT [facility] CLINICAL INFORMATION See Note [facility] [employer] Comment:Routine exam LMP See Note [employer] [employer] Comment:[id number] PREV. PAP See Note [facility] Comment:NONE GIVEN PREV. BX See Note [facility] Comment:NONE GIVEN SOURCE See Note [facility] [employer] Comment:Cervix STATEMENT OF ADEQUACY See Note [facility] Comment: Satisfactory for evaluation. Endocervical/transformation zone component present. INTERPRETATION/RESU LT See Note [employer] Comment: Cytology Results: Negative for intraepithelial lesion or malignancy. COMMENT See Note [facility] Comment: This Pap test has been evaluated with computer assisted technology. PERFUSIONIST See Note [employer] Comment: YP, CT(ASCP) CT screening location: [address] ??[address] COMMENT [employer] Swab Cervix uteri structure / Unknown 02/15/2023 4:01 PM EST 02/17/2023 1:45 AM EST Narrative [facility] [place] - 2 DIAGNOSTICS [facility] - 02/22/2023 11:57 AM EST EXPLANATORY NOTE: The Pap is a screening test for cervical cancer. It is not a diagnostic test and is subject to false negative and false positive results. It is most reliable when a satisfactory sample, regularly obtained, is submitted with relevant clinical findings and history, and when the Pap result is evaluated along with historic and current clinical information. The analytical performance characteristics of this assay, when used to test SurePath(TM) specimens have been determined by [employer]. The modifications have not been cleared or approved by the FDA. This assay has been validated pursuant to the CLIA regulations and is used for clinical purposes. For additional information, please refer to https://DNsolution.[employer]/faq/BIF795 (This link is being provided for information/ educational purposes only.) Slim Quesada MD LAB - NO BLOOD DRAW Final Result [facility] [address] [address], [facility] [place] [email or web address] [address] [place] [phone] * HEPATITIS C AB W/RFLX HCV RNA, QT, RT PCR (10/06/2021 10:30 AM EDT) HEPATITIS C ANTIBODY NON-REACT RUBY NON-REACT RUBY [facility] SIGNAL TO CUT-OFF 0.15 <1.00 [facility] Comment: HCV antibody was non-reactive. There is no laboratory evidence of HCV infection. In most cases, no further action is required. However, if recent HCV exposure is suspected, a test for HCV RNA (test code 87835) is suggested. For additional information please refer to http://education.[employer]/faq/OZG38x0 (This link is being provided for informational/ educational purposes only.) Blood Blood / Unknown 10/06/2021 1 0:30 AM EDT 10/06/2021 10:30 AM EDT Ana Paula Grier PA-C LAB - BLOOD DRAW Final Resul t Performing Organization Address [facility] Co de Phone Number [facility] [address] [address], [facility] [address] [phone] * HIV 1/2 AG & AB W/RFLX (4TH GEN) (10/06/2021 10:30 AM EDT) HIV AG/AB, 4TH GEN NON-REAC TIVE NON-REAC TIVE [facility] Comment: HIV-1 antigen and HIV-1/HIV-2 antibodies were not detected. There is no laboratory evidence of HIV infection. PLEASE NOTE: This information has been disclosed to you from records whose confidentiality may be protected by state law. ??If your state requires such protection, then the state law prohibits you from making any further disclosure of the information without the specific written consent of the person to whom it pertains, or as otherwise permitted by law. A general authorization for the release of medical or other information is NOT sufficient for this purpose. ?? For additional information please refer to http://education.[employer]/faq/AUI474 (This link is being provided for informational/ educational purposes only.) The performance of this assay has not been clinically validated in patients less than 2 years old. Blood Blood / Unknown 10/06/2021 1 0:30 AM EDT 10/06/2021 10:30 AM EDT Ana Paula Grier PA-C LAB - BLOOD DRAW Final Resul t Performing Organization Address [facility]/ZIP Co de Phone Number [facility] [address] [address], [facility] [address] [phone] * LIPIDS W RFLX TO DIRECT LDL (10/06/2021 10:30 AM EDT) CHOLESTEROL, TOTAL 143 <200 mg/dL [facility] HDL CHOLESTEROL 71 > OR = 50 mg/dL [facility] TRIGLYCERIDES 36 <150 mg/dL [facility] LDL-CHOLESTEROL 62 99 mg/dL (calc) [facility] Comment: Reference range: <100 Desirable range <100 mg/dL for primary prevention; ?? <70 mg/dL for patients with CHD or diabetic patients with > or = 2 CHD risk factors. LDL-C is now calculated using the Ashkan calculation, which is a validated novel method providing better accuracy than the Friedewald equation in the estimation of LDL-C. Cameron ESPINOZA et al. YASIR. 2013;310(19): 0866-9335 (http://education.[employer]/faq/PVF217) CHOL/HDLC RATIO 2.0 <5.0 (calc) [facility] NON-HDL CHOLESTEROL 72 <130 mg/dL (calc) [facility] Comment: For patients with diabetes plus 1 major ASCVD risk factor, treating to a non-HDL-C goal of <100 mg/dL (LDL-C of <70 mg/dL) is considered a therapeutic option. Blood Blood / Unknown 10/06/2021 1 0:30 AM EDT 10/06/2021 10:30 AM EDT us Ana Paula Grier PA-C LAB - BLOOD DRAW Final Resul t [facility] [address] [address], [facility] [address] [address] * (ABNORMAL) COMPREHENSIVE METABOLIC PANEL (10/06/2021 10:30 AM EDT) GLUCOSE 82 65 - 99 mg/dL [facility] Comment: ?Fasting reference interval UREA NITROGEN (BUN) 9 7 - 25 mg/dL [facility] CREATININE (blood) 0.68 0.50 - 0.97 mg/dL [facility] EGFR 114 > OR = 60 mL/min/1 .73m2 [facility] Comment: The eGFR is based on the CKD-EPI 2020 equation. To calculate the new eGFR from a previous Creatinine or Cystatin C result, go to https://www.kidney.org/professionals/ kdoqi/gfr%5Fcalculator BUN/CREATININE RATIO NOT APPLICABLE 6 - 22 [facility] SODIUM 138 135 - 146 mmol/L [facility] POTASSIUM 4.3 3.5 - 5.3 mmol/L [email or web address] CHLORIDE 106 98 - 110 mmol/L [facility] CARBON DIOXIDE 26 20 - 32 mmol/L [email or web address] CALCIUM 9.4 8.6 - 10.2 mg/dL [facility] [place] [email or web address] PROTEIN, TOTAL 6.6 6.1 - 8.1 g/dL [facility] ALBUMIN 4.6 3.6 - 5.1 g/dL [facility] [email or web address] GLOBULIN 2.0 1.9 - 3.7 g/dL (calc) [facility] ALBUMIN/GLOBUL IN RATIO 2.3 1.0 - 2.5 (calc) [email or web address] BILIRUBIN, TOTAL 1.5(H) 0.2 - 1.2 mg/dL [facility] ALKALINE PHOSPHATASE 44 31 - 125 U/L [facility] AST 14 10 - 30 U/L [facility] ALT 20 6 - 29 U/L [facility] Blood Blood / Unknown 10/06/2021 1 0:30 AM EDT 10/06/2021 10:30 AM EDT Ana Paula Grier PA-C LAB - BLOOD DRAW Edited Resu lt - Final [employer] [facility] [address] [address], [facility] [address] [address] from Last 3 Months or Most Recently Relevant to Health Maintenance Insurance [place] [employer] [address] ACO Member Subscriber Plan / Payer (Ef fective 2023-Present) Name:Rashmi Busby Relation to Subscriber:Self Name:Rashmi Busby Payer ID:[id number] Group ID:Not on file Type:Managed Medicaid Address: [place] [id number] Care Teams Product Specialist Relationship Specialty Start Date End Date Ana Paula Grier PA-C [address] [place] [id number] PCP - General Internal Medicine 10/06/21
== END 2024-04-26 13:31 | disposition home or self-care (01) ==
LOC: HO.MAMMO 13:30
DX: N64.4 Mastodynia (principal); N63.15 Unspecified lump in the right breast, overlapping quadrants
CPT/HCPCS: 76642; 77062; 77066

== ENCOUNTER → 2024-04-26 14:30 | Outpatient (BNV) | payer OTHER, SELFPAY | PROVIDERS: Visit Provider Internal Medicine | DX: Z12.31 Encounter for screening mammogram for malignant neoplasm of breast (principal); N64.4 Mastodynia; N60.01 Solitary cyst of right breast; N63.41 Unspecified lump in right breast, subareolar | CPT/HCPCS: 76642; 77062; 77066 ==

== ENCOUNTER 2024-05-17 10:28 | Outpatient (AMB) | payer OTHER, SELFPAY ==
--- NOTE | 2024-05-17 10:34 | A.OFFVIS_ITS ---
Vital Signs 3 05/17/24 10:40 Height 5 ft 7 in Weight 143 lb 4.807 oz BMI 22.4 Respiration 16 Pulse 78 Intake Visit Reasons: US R breast biopsy retroareolar mass 9 o'clock Intake Note: Patient is seen in office for ultrasound biopsy CONSULT right breast 9 o'clock retroaerolar mass. Pt c/o: feels a lump on the right breast for aprox 20 yrs, currently is painful, minimal increase, denies prior bx, no prior breast surgeries, yes to breast feeding with no complication, no fm hx breast cancer, first child age 29 Bx sched:05/23/24 @10am Immigration Services Officer Required: Yes Immigration Services Officer Language: Statistical Clerk Advertising Services: Immigration Services Officer Present Immigration Services Officer Name: Carmen CHAUDHARI Information Interpreted: non-clinical & clinical Silk Trimmer: Silk Trimmer Present Accompanied by: Spouse Allergies No Known Allergies Allergy (Verified 05/17/24 10:41) Medication List - Last Reconciled 05/17/24 by Ritchie Barnard MD No Known Home Meds HPI Comments Details: 44-year-old female patient presenting with a palpable right breast mass located in the 9 o'clock position. She reports 1st noted the lump approximately 20 years ago. She feels the lump may have increased in size slightly since then. She occasionally has some discomfort associated with the lesion but denies any skin changes. She denies any previous history of breast problems or breast surgery. Subsequent mammogram and ultrasound revealed a density in the 9 o'clock position noted by ultrasound approximately 1 cm from the nipple measuring 8 x 5 x 7 mm. In addition a cyst in the 7 o'clock position approximately 2 cm from the nipple was identified measuring 5 x 4 x 2 mm. An ultrasound-guided core biopsy was recommended and has been scheduled for 05/23/2024 at the [facility]. She denies a family history of breast problems or breast surgery. She is 2 para 2, her 1st child was born when she was 29. She reports breast-feeding both children. [facility] Medical History (Updated 05/17/24 @ 10:55 by Ritchie Barnard MD) Headache No pertinent past medical history Surgical History History of Family History Mother No problems noted. Father No problems noted. Social History Housing: Apartment Alcohol intake: current Alcohol intake frequency: holidays/special occasions only Alcohol type: beer Patient Tobacco Use Status: Former Tobacco user Tobacco use type: Cigarette e-Cigarette/Vaping Use: Never Used Second Hand Smoke Exposure: No service: No Current occupational status: employed Current occupational exposures/hazards: No Cognitive needs: No Hearing needs: No Vision needs: Yes Female Reproductive History Menstrual Total pregnancies: 2 Full term: 2 Review of Systems Const All systems reviewed & are unremarkable except as noted in HPI and below Denies chills, Denies fever(s), Denies headache(s), Denies poor appetite and Denies weakness ENT Denies headache(s) Card Denies chest pain, Denies irregular heart rhythm, Denies palpitations and Denies dyspnea Resp Denies cough, Denies excessive phlegm production and Denies dyspnea GI Denies abdominal pain, Denies bloating, Denies change in bowel habits, Denies constipation, Denies heartburn, Denies diarrhea, Denies nausea and Denies vomiting Denies urinary frequency Musc Denies back pain, Denies muscle weakness and Denies numbness Skin/Breast Denies changing lesions and Denies unusual bruising Neuro Denies headache(s), Denies numbness, Denies paresthesias and Denies weakness Psych Denies anxiety and Denies depression Endo Denies palpitations Shane/Lymph Denies lymphadenopathy Physical Exam Vital Signs: Last Vital Signs Pulse 78 05/17/24 10:40 Resp 16 05/17/24 10:40 BMI result Body Mass Index 22.4 Const General: cooperative and no acute distress Nutritional Appearance: well nourished Orientation/consciousness: patient oriented x3 Limitations: no limitations HEENT Head: Yes normocephalic and Yes atraumatic Ears: hearing grossly normal bilaterally Chest Other: Left breast: No skin change, no nipple retraction, no nipple discharge, no palpable mass, no enlarged lymph nodes. Right breast: No skin change, no nipple retraction, no nipple discharge, palpable mass in the 9 o'clock position just lateral to the areola measuring approximately 1 cm less in diameter, superficial within the breast tissue, no enlarged lymph nodes Chest/axillae images: 2 1. Site of palpable mass, rubbery, mobile, most consistent with a fibroadenoma. Resp Effort & Inspection: normal respiratory effort, no audible wheezes, no cough and no respiratory distress Cardio Jugular venous distension: no JVD GI Inspection: Yes normal to inspection Skin Other: Warm, dry, no rash Neuro General: patient oriented x3 Extrem General: Yes no clubbing, cyanosis or edema Assessment & Plan Assessment & Plan (1) Breast mass, right: Code(s): N63.10 - Unspecified lump in the right breast, unspecified quadrant Category: Medical (2) Abnormal ultrasound of breast: Code(s): R92.8 - Other abnormal and inconclusive findings on diagnostic imaging of breast Category: Medical Plan 44-year-old female patient presenting with a palpable mass in the right breast noted for least 20 years without significant change. On examination she does have a palpable mass just lateral to the areola which appears consistent with a fibroadenoma. She was scheduled for an ultrasound-guided core biopsy at the [facility] on 05/23/2024. I recommended follow-up in approximately 1 week following the biopsy to review the pathology results and discuss treatment options. She expressed understanding and agrees with the plan. Coding Level of Care Code New Pt Level 4 (19537) Diagnoses Breast mass, right N63.10 Abnormal ultrasound of breast R92.8
[2024-05-17 10:40] VITALS: PULSE 78; RESP 16; BMI 22.4
--- OUTSIDE RECORDS SUMMARY | 2024-05-17 12:01 | XMS_ITS | Clinical Summary ---
Author Organization [facility] Address [address] [place] [address] Care Team Providers Care Thread Cutter Tender Name Role Phone Ana Paula Grier PA-C Primary Care Provider [phone] Source Comments PLEASE NOTE, if this patient [...] 10/07/19 22 Active lidocaine (LMX) 4 % creamIndications:Castings Trimmer denise left shoulder pain Apply topically as [...] Description 06/11/2024 3:40 PM EDT Office Visit [facility] [address] [place] [id number] Elise Puga [address] [place] [address] Health Maintenance Due Date Last Done Comments HPV Screening 1982 Imm-Hepatitis B (1 of 3 - 19+ 3-dose series) 2001 Imm-DTaP/Tdap/Td (1 - Tdap) 11/11/2022 11/10/2022 [id number] (2 - 2023- season) 2023 02/04/2022 Annual [...] Encounter for dental examination [facility] BITEWINGS - FOUR RADIOGRAPHIC IMAGES Routine 09/26/2023 4:20 PM EDT Encounter for dental examination [facility] PROPHYLAXIS - ADULT Routine 09/26/2023 4 :20 [...] AM EST) 03/22/2023 3:00 AM EST us Slim Quesada MD IMG RFL MAMMO Edited Result - Final * THINPREP IMAGING PAP REFLEX HPV MRNA E6/E7, CT/GT (Q) (02/15/2023 4:01 PM EST) CHLAMYDIA TRACHOMATIS RNA, TMA NOT DETECTED NOT DETECTED [facility] NEISSERIA GONORRHOEAE RNA, TMA NOT DETECTED NOT DETECTED [facility] COMMENT [facility] [facility] CLINICAL INFORMATION See Note [facility] [facility] Comment:Routine exam LMP See Note [employer] Comment:[id number] PREV. PAP See Note [facility] Comment:NONE GIVEN PREV. BX See Note [employer] Comment:NONE GIVEN SOURCE See Note [employer] Comment:Cervix STATEMENT OF ADEQUACY See Note [employer] Comment: Satisfactory for evaluation. Endocervical/transformation zone component present. INTERPRETATION/RESU LT See Note [employer] Comment: Cytology Results: Negative for intraepithelial lesion or malignancy. COMMENT See Note [facility] Comment: This Pap test has been evaluated with computer assisted technology. FINISH MACHINE TENDER See Note [employer] Comment: YP, CT(ASCP) CT screening location: [address] ??[address] COMMENT [facility] [facility] Swab Cervix uteri structure / Unknown 02/15/2023 4:01 PM EST 02/17/2023 1:45 AM EST Narrative [email or web address] - 02/22/2023 11:57 AM EST EXPLANATORY [...] test SurePath(TM) specimens have been determined by [facility]. The modifications have not been cleared or approved by the FDA. This assay has been validated pursuant to the CLIA regulations and is used for clinical purposes. For additional information, please refer to https://education.[employer]/faq/ACH821 (This link is being provided for information/ educational purposes only.) Slim Quesada MD LAB - NO BLOOD DRAW Final Result [facility] [address] [address], [facility] [address] [address] * HEPATITIS C AB W/RFLX HCV RNA, QT, RT PCR (10/06/2021 10:30 AM EDT) HEPATITIS C ANTIBODY NON-REACT RUBY NON-REACT RUBY [email or web address] SIGNAL TO CUT-OFF 0.15 <1.00 [employer] Comment: HCV antibody was non-reactive. There is no laboratory evidence of HCV infection. In most cases, no further action is required. However, if recent HCV exposure is suspected, a test for HCV RNA (test code 09688) is suggested. For additional information please refer to http://education.[employer]/faq/QBI62x9 (This link is being provided for informational/ educational purposes only.) Blood Blood / Unknown 10/06/2021 1 0:30 AM EDT 10/06/2021 10:30 AM EDT Ana Paula Grier PA-C LAB - BLOOD DRAW Final Resul t Performing Organization Address [facility] Co de Phone Number [facility] [address] [address], [employer] [facility] [address] [address] * HIV 1/2 AG & AB W/RFLX (4TH GEN) (10/06/2021 10:30 AM EDT) HIV AG/AB, 4TH GEN NON-REAC TIVE NON-REAC TIVE [facility] Comment: HIV-1 antigen and HIV-1/HIV-2 antibodies were [...] ?? For additional information please refer to http://education.[employer]/faq/JHH063 (This link is being provided for informational/ educational purposes only.) The performance of this assay has not been clinically validated in patients less than 2 years old. Blood Blood / Unknown 10/06/2021 1 0:30 AM EDT 10/06/2021 10:30 AM EDT Ana Paula Grier PA-C LAB - BLOOD DRAW Final Resul t Performing Organization Address City/[facility]/ZIP Co de Phone Number [facility] [address] [address], [facility] [address],[place] [address] * LIPIDS W RFLX TO DIRECT LDL (10/06/2021 10:30 AM EDT) CHOLESTEROL, TOTAL 143 <200 mg/dL [facility] HDL CHOLESTEROL 71 > OR = 50 mg/dL [facility] TRIGLYCERIDES 36 <150 mg/dL [facility] LDL-CHOLESTEROL 62 99 mg/dL (calc) [facility] Comment: Reference range: <100 Desirable range <100 mg/dL for primary prevention; ?? <70 mg/dL for patients with CHD or diabetic patients with > or = 2 CHD risk factors. LDL-C is now calculated using the Ashkan calculation, which is a validated novel method providing better accuracy than the Friedewald equation in the estimation of LDL-C. Cameron ESPINOZA et al. YASIR. 2013;310(19): 7831-1908 (http://education.[employer]/faq/GIY825) CHOL/HDLC RATIO 2.0 <5.0 (calc) [facility] NON-HDL CHOLESTEROL 72 <130 mg/dL (calc) [facility] Comment: For patients with diabetes plus 1 major ASCVD risk factor, treating to a non-HDL-C goal of <100 mg/dL (LDL-C of <70 mg/dL) is considered a therapeutic option. Blood Blood / Unknown 10/06/2021 1 0:30 AM EDT 10/06/2021 10:30 AM EDT us Ana Paula Grier PA-C LAB - BLOOD DRAW Final Resul t [facility] [address] [address], [employer] [address] [address] * (ABNORMAL) COMPREHENSIVE METABOLIC PANEL (10/06/2021 10:30 AM EDT) GLUCOSE 82 65 - 99 mg/dL [employer] [facility] Comment: ?Fasting reference interval UREA NITROGEN (BUN) 9 7 - 25 mg/dL [facility] CREATININE (blood) 0.68 0.50 - 0.97 mg/dL [facility] EGFR 114 > OR = 60 mL/min/1 .73m2 [facility] [facility] Comment: The eGFR is based on the CKD-EPI 2020 equation. To calculate the new eGFR from a previous Creatinine or Cystatin C result, go to https://www.kidney.org/professionals/ kdoqi/gfr%5Fcalculator BUN/CREATININE RATIO NOT APPLICABLE 6 - 22 [facility] SODIUM 138 135 - 146 mmol/L [facility] [facility] POTASSIUM 4.3 3.5 - 5.3 mmol/L [facility] [place] [facility] CHLORIDE 106 98 - 110 mmol/L [facility] CARBON DIOXIDE 26 20 - 32 mmol/L [facility] [place] [facility] CALCIUM 9.4 8.6 - 10.2 mg/dL [facility] PROTEIN, TOTAL 6.6 6.1 - 8.1 g/dL [facility] [facility] ALBUMIN 4.6 3.6 - 5.1 g/dL [facility] [place] [facility] GLOBULIN 2.0 1.9 - 3.7 g/dL (calc) [facility] ALBUMIN/GLOBUL IN RATIO 2.3 1.0 - 2.5 (calc) [facility] [place] [facility] BILIRUBIN, TOTAL 1.5(H) 0.2 - 1.2 mg/dL [facility] ALKALINE PHOSPHATASE 44 31 - 125 U/L [facility] AST 14 10 - 30 U/L [facility] [facility] ALT 20 6 - 29 U/L [facility] [place] [facility] Blood Blood / Unknown 10/06/2021 1 0:30 AM EDT 10/06/2021 10:30 AM EDT Ana Paula Grier PA-C LAB - BLOOD DRAW Edited Resu lt - Final [facility] [address] [address], [email or web address] [facility] [address] [address] from Last 3 Months or Most Recently Relevant to Health Maintenance Insurance [place] [address] [employer] Care Teams Thread Cutter Tender Relationship Specialty Start Date End Date Ana Paula Grier PA-C [address] [place] [id number] PCP - General Internal Medicine 10/06/21
== END 2024-05-17 10:59 | disposition home or self-care (01) ==
LOC: HO.HGS 10:29
PROVIDERS: Visit Provider Surgery
DX: N63.10 Unspecified lump in the right breast, unspecified quadrant (principal); R92.8 Other abnormal and inconclusive findings on diagnostic imaging of breast
CPT/HCPCS: 99204

== ENCOUNTER → 2024-05-17 10:28 | Outpatient (BNVA) | payer OTHER, SELFPAY | PROVIDERS: Visit Provider Surgery | DX: N60.01 Solitary cyst of right breast (principal); N63.15 Unspecified lump in the right breast, overlapping quadrants | CPT/HCPCS: 99202 ==

== ENCOUNTER 2024-05-23 09:33 | Outpatient (REF) | payer OTHER, SELFPAY ==
--- NOTE | ~2024-05-23 | MM_ITS ---
PROCEDURE: ULTRASOUND-GUIDED RIGHT BREAST BIOPSY CLINICAL INFORMATION: Right breast mass 9:00 1 cm from the nipple. COMPARISON: [facility] on PACS. TECHNIQUE: The details of the procedure, as well as the risks, benefits, and alternatives to the procedure were explained to the patient in detail and all of her questions were answered, after which, written informed consent was obtained. PROCEDURE: Prior to the procedure, sonography revealed solid mass at 9:00 1 cm from the nipple. A time-out was performed, the lesion intended for biopsy was targeted and the skin of the right breast was then prepped and draped in the usual sterile fashion. Using sonographic guidance, sterile technique, and 1% lidocaine without epinephrine for local anesthesia, a total of 5 cores were obtained through the targeted area with a 14-gauge biopsy device. At the completion of tissue sampling, a single coil metallic clip was deposited at the biopsy site. An appropriate sample was obtained. The postprocedure 2-view direct digital mammogram reveals satisfactory positioning of the biopsy clip. The patient tolerated the procedure well and, after assuring adequate hemostasis, was discharged in good condition after reviewing postbiopsy breast care instructions. Final pathology results are pending. MM/MM tomosynthesis diagnostic RT IMPRESSION: 1. Uncomplicated sonographically-guided core biopsy of the right breast. The 2-view direct digital postprocedure mammogram reveals satisfactory positioning of the biopsy clip. 2. Final pathology results are pending. A separate report with final recommendations will be issued once these results are made available. Electronically signed by: Darleen Baltazar DO 05/23/2024 11:39 AM EDT
[2024-05-23] MEDS: Lidocaine HCl 1 % 20 ML VIAL 9 ML SUBCUT (11:01)
[2024-05-23] MEDS: Sodium Bicarbonate 8.4% 50 MEQ/50 ML VIAL SUBCUT (11:01)
== END 2024-05-23 09:34 | disposition home or self-care (01) ==
LOC: HO.MAMMO 09:33
PROVIDERS: Visit Provider Surgery
DX: R92.8 Other abnormal and inconclusive findings on diagnostic imaging of breast (principal); N63.10 Unspecified lump in the right breast, unspecified quadrant
CPT/HCPCS: 19083; 77061; 77065; 88305; A4648; J2003

== ENCOUNTER → 2024-05-23 10:00 | Outpatient (BNV) | payer OTHER, SELFPAY | PROVIDERS: Visit Provider Internal Medicine | DX: D24.1 Benign neoplasm of right breast (principal) | CPT/HCPCS: 19083; 77065 ==

== ENCOUNTER 2024-05-31 15:17 | Outpatient (AMB) | payer OTHER, SELFPAY ==
--- NOTE | 2024-05-31 15:17 | MHC.OFFVIS ---
Vital Signs 05/31/24 15:26 Height 5 ft 7 in Weight 143 lb 4.807 oz BMI 22.4 Intake Visit Reasons: Biopsy results Intake Note: Patient is seen in office for ultrasound biopsy RESULTS right breast 9 o'clock retroaerolar mass. Pt c/o: no concerns Bricklayer Helper Required: Yes Bricklayer Helper Language: Table Games Floor Supervisor Services: Bricklayer Helper Present Bricklayer Helper Name: Carmen CHAUDHARI Information Interpreted: non-clinical & clinical Therapist Radiation: Therapist Radiation Present Accompanied by: Spouse Allergies No Known Allergies Allergy (Verified 05/31/24 15:26) Medication List - Last Reconciled 05/31/24 by Ritchie Barnard MD No Known Home Meds HPI Comments Details: 44-year-old female presenting with a palpable right breast mass. She reports that the mass was first noticed approximately 20 years ago, located at the 9 o'clock position in the right breast. The mass may have slightly increased in size over time but remains without overlying skin changes, although occasional discomfort is noted. There is no history of previous breast problems or surgeries. Imaging confirmed a density in the 9 o'clock position measuring 8 x 5 x 7 mm, while a cyst was concurrently noted in the 7 o'clock position measuring 5 x 4 x 2 mm. An ultrasound-guided core biopsy was performed and ultimately identified the mass as a fibroadenoma. She tolerated the procedure well denies any ongoing breast pain. She did note the lump to increase in size following the biopsy. [facility] Medical History Headache No pertinent past medical history Surgical History History of Family History Mother No problems noted. Father No problems noted. Social History Housing: Apartment Alcohol intake: current Alcohol intake frequency: holidays/special occasions only Alcohol type: beer Patient Tobacco Use Status: Former Tobacco user Tobacco use type: Cigarette e-Cigarette/Vaping Use: Never Used Second Hand Smoke Exposure: No service: No Current occupational status: employed Current occupational exposures/hazards: No Cognitive needs: No Hearing needs: No Vision needs: Yes Physical Exam Vital Signs: BMI result Body Mass Index 22.4 Const General: cooperative and no acute distress Nutritional Appearance: well nourished Orientation/consciousness: patient oriented x3 Limitations: no limitations HEENT Head: Yes normocephalic and Yes atraumatic Ears: hearing grossly normal bilaterally Chest Other: From previous exam: Left breast: No skin change, no nipple retraction, no nipple discharge, no palpable mass, no enlarged lymph nodes. Right breast: No skin change, no nipple retraction, no nipple discharge, palpable mass in the 9 o'clock position just lateral to the areola measuring approximately 1 cm less in diameter, superficial within the breast tissue, no enlarged lymph nodes Resp Effort & Inspection: normal respiratory effort, no audible wheezes, no cough and no respiratory distress Cardio Jugular venous distension: no JVD GI Inspection: Yes normal to inspection Skin Other: Warm, dry, no rash Neuro General: patient oriented x3 Extrem General: Yes no clubbing, cyanosis or edema Assessment & Plan Assessment & Plan (1) Breast mass, right: Code(s): N63.10 - Unspecified lump in the right breast, unspecified quadrant Category: Medical Qualifiers: Breast mass location: upper outer quadrant Qualified Code(s): N63.11 - Unspecified lump in the right breast, upper outer quadrant (2) Abnormal ultrasound of breast: Code(s): R92.8 - Other abnormal and inconclusive findings on diagnostic imaging of breast Category: Medical (3) Fibroadenoma of right breast: Code(s): D24.1 - Benign neoplasm of right breast Category: Medical Plan 44-year-old female patient presenting with a palpable mass in the right breast at the 9 o'clock position. She subsequently underwent ultrasound-guided core biopsy which revealed a fibroadenoma. We discussed options including continued observation verses an excisional biopsy. As the lesion has been fairly stable for many years she wishes to continue observation without surgical intervention which certainly seems reasonable. She does have a cyst in the 7 o'clock position approximately 2 cm from the nipple for which an ultrasound 6 months is recommended. I have placed an order for this study and will have a return following the study review the results. She expressed understanding and agrees with the plan. Orders: Orders US breast RT limited 6 Months N63.10 - Unspecified lump in the right breast, unspecified quadrant, R92.8 - Other abnormal and inconclusive findings on diagnostic imaging of breast Coding Level of Care Code Est Pt Level 3 (52611) Diagnoses Mass of upper outer quadrant of right breast N63.11 Breast mass location: upper outer quadrant Abnormal ultrasound of breast R92.8 Fibroadenoma of right breast D24.1
[2024-05-31 15:26] VITALS: BMI 22.4
--- OUTSIDE RECORDS SUMMARY | 2024-05-31 16:41 | XMS_ITS | Clinical Summary ---
Author Organization [facility] Address [address] [place] [address] Care Team Providers Care Bank Note Designer Name Role Phone Ana Paula Grier PA-C Primary Care Provider [phone] Source Comments PLEASE NOTE, if this patient [...] 10/07/19 22 Active lidocaine (LMX) 4 % creamIndications:Valve Maker denise left shoulder pain Apply topically as [...] Nexplanon insertion 12/27/2022 Irregular periods 12/27/2022 Immunizations Immunization Administration Dates Next Due Flu, Preservative Free [...] Description 06/11/2024 3:40 PM EDT Office Visit [facility] [address] [place] [address] Elise Puga [address] [place] [address] Health Maintenance Due Date Last Done Comments Anxiety Screening 1982 HPV Screening 1982 Imm-Hepatitis B (1 of 3 - 19+ 3-dose series) 2001 Imm-DTaP/Tdap/Td (1 - Tdap) 11/11/2022 11/10/2022 Dya-RMTRV-93 ( season) 2023 02/04/2022 Annual Preventive Care Visit [...] Encounter for dental examination [facility] BITEWINGS - FOUR RADIOGRAPHIC IMAGES Routine 09/26/2023 4:20 PM EDT Encounter for dental examination [facility] PROPHYLAXIS - ADULT Routine 09/26/2023 4 :20 [...] 3:00 AM EST) 03/22/2023 3:00 AM EST Slim Quesada MD [facility] MAMMO Edited Result - Final * THINPREP IMAGING PAP REFLEX HPV MRNA E6/E7, CT/GT (Q) (02/15/2023 4:01 PM EST) CHLAMYDIA TRACHOMATIS RNA, TMA NOT DETECTED NOT DETECTED [facility] NEISSERIA GONORRHOEAE RNA, TMA NOT DETECTED NOT DETECTED [facility] COMMENT [facility] CLINICAL INFORMATION See Note [facility] Comment:Routine exam LMP See Note [facility] Comment:[id number] PREV. PAP See Note [facility] Comment:NONE GIVEN PREV. BX See Note [facility] Comment:NONE GIVEN SOURCE See Note [facility] Comment:Cervix STATEMENT OF ADEQUACY See Note [facility] Comment: Satisfactory for evaluation. Endocervical/transformation zone component present. INTERPRETATION/RESU LT See Note [facility] Comment: Cytology Results: Negative for intraepithelial lesion or malignancy. COMMENT See Note [facility] Comment: This Pap test has been evaluated with computer assisted technology. TERMITE TREATER See Note [employer] Comment: YP, CT(ASCP) CT screening location: [address] ??[address] COMMENT [facility] Swab Cervix uteri structure / Unknown 02/15/2023 4:01 PM EST 02/17/2023 1:45 AM EST Narrative [employer] - 02/22/2023 11:57 AM EST EXPLANATORY [...] test SurePath(TM) specimens have been determined by [facility]. The modifications have not been cleared or approved by the FDA. This assay has been validated pursuant to the CLIA regulations and is used for clinical purposes. For additional information, please refer to https://[employer]/faq/NUU383 (This link is being provided for information/ educational purposes only.) Slim Quesada MD LAB - NO BLOOD DRAW Final Result [facility] [address] [address], [facility] [address] [place] [address] * HEPATITIS C AB W/RFLX HCV RNA, QT, RT PCR (10/06/2021 10:30 AM EDT) HEPATITIS C ANTIBODY NON-REACT RUBY NON-REACT RUBY [facility] SIGNAL TO CUT-OFF 0.15 <1.00 [facility] Comment: HCV antibody was non-reactive. There is no laboratory evidence of HCV infection. In most cases, no further action is required. However, if recent HCV exposure is suspected, a test for HCV RNA (test code 31793) is suggested. For additional information please refer to http://education.[employer]/faq/LGA57e3 (This link is being provided for informational/ educational purposes only.) Blood Blood / Unknown 10/06/2021 1 0:30 AM EDT 10/06/2021 10:30 AM EDT Ana Paula Grier PA-C LAB - BLOOD DRAW Final Resul t Performing Organization Address [facility] Co de Phone Number [employer] [facility] [address] [address], [employer] [facility] [address] [address] * HIV 1/2 AG & AB W/RFLX (4TH GEN) (10/06/2021 10:30 AM EDT) HIV AG/AB, 4TH GEN NON-REAC TIVE NON-REAC TIVE [employer] [facility] Comment: HIV-1 antigen and HIV-1/HIV-2 antibodies were [...] ?? For additional information please refer to http://education.[employer]/faq/XIW132 (This link is being provided for informational/ educational purposes only.) The performance of this assay has not been clinically validated in patients less than 2 years old. Blood Blood / Unknown 10/06/2021 1 0:30 AM EDT 10/06/2021 10:30 AM EDT Ana Paula Grier PA-C LAB - BLOOD DRAW Final Resul t [facility] [address] [address], [employer] [address] [address] * LIPIDS W RFLX TO DIRECT LDL (10/06/2021 10:30 AM EDT) CHOLESTEROL, TOTAL 143 <200 mg/dL [employer] [facility] HDL CHOLESTEROL 71 > OR = 50 mg/dL [employer] [facility] TRIGLYCERIDES 36 <150 mg/dL [facility] LDL-CHOLESTEROL 62 99 mg/dL (calc) [facility] Comment: Reference range: <100 Desirable range <100 mg/dL for primary prevention; ?? <70 mg/dL for patients with CHD or diabetic patients with > or = 2 CHD risk factors. LDL-C is now calculated using the Ashkan calculation, which is a validated novel method providing better accuracy than the Friedewald equation in the estimation of LDL-C. Cameron SS et al. YASIR. 2013;310(22): 7026-7802 (http://education.MedSocket/faq/DKE809) CHOL/HDLC RATIO 2.0 <5.0 (calc) [facility] NON-HDL CHOLESTEROL 72 <130 mg/dL (calc) [facility] Comment: For patients with diabetes plus 1 major ASCVD risk factor, treating to a non-HDL-C goal of <100 mg/dL (LDL-C of <70 mg/dL) is considered a therapeutic option. Blood Blood / Unknown 10/06/2021 1 0:30 AM EDT 10/06/2021 10:30 AM EDT us Ana Paula Grier PA-C LAB - BLOOD DRAW Final Resul t [facility] [address] [address], [facility] [address] [address] * (ABNORMAL) COMPREHENSIVE METABOLIC PANEL (10/06/2021 10:30 AM EDT) GLUCOSE 82 65 - 99 mg/dL [facility] Comment: ?Fasting reference interval UREA NITROGEN (BUN) 9 7 - 25 mg/dL [facility] CREATININE (blood) 0.68 0.50 - 0.97 mg/dL [facility] EGFR 114 > OR = 60 mL/min/1 .73m2 [facility] Comment: The eGFR is based on the CKD-EPI 2020 equation. To calculate the new eGFR from a previous Creatinine or Cystatin C result, go to https://www.kidney.org/professionals/ kdoqi/gfr%5Fcalculator BUN/CREATININE RATIO NOT APPLICABLE 6 - 22 [employer] [facility] SODIUM 138 135 - 146 mmol/L [employer] [facility] POTASSIUM 4.3 3.5 - 5.3 mmol/L [employer] [facility] CHLORIDE 106 98 - 110 mmol/L [employer] [facility] CARBON DIOXIDE 26 20 - 32 mmol/L [employer] [facility] CALCIUM 9.4 8.6 - 10.2 mg/dL [employer] [facility] PROTEIN, TOTAL 6.6 6.1 - 8.1 g/dL [employer] [facility] ALBUMIN 4.6 3.6 - 5.1 g/dL [employer] [facility] GLOBULIN 2.0 1.9 - 3.7 g/dL (calc) [employer] [facility] ALBUMIN/GLOBUL IN RATIO 2.3 1.0 - 2.5 (calc) [employer] [facility] BILIRUBIN, TOTAL 1.5(H) 0.2 - 1.2 mg/dL [employer] ALKALINE PHOSPHATASE 44 31 - 125 U/L [employer] [facility] AST 14 10 - 30 U/L [employer] [facility] ALT 20 6 - 29 U/L [employer] [facility] Blood Blood / Unknown 10/06/2021 1 0:30 AM EDT 10/06/2021 10:30 AM EDT Ana Paula Grier PA-C LAB - BLOOD DRAW Edited Resu lt - Final [facility] [address] [address], [employer] [facility] [address] [address] from Last 3 Months or Most Recently Relevant to Health Maintenance Insurance [place] [address] [employer] Care Teams Bank Note Designer Relationship Specialty Start Date End Date Ana Paula Grier PA-C [address] [place] [id number] PCP - General Internal Medicine 10/06/21
== END 2024-05-31 15:26 | disposition home or self-care (01) ==
LOC: HO.HGS 15:17
PROVIDERS: Visit Provider Surgery
DX: N63.11 Unspecified lump in the right breast, upper outer quadrant (principal); R92.8 Other abnormal and inconclusive findings on diagnostic imaging of breast; D24.1 Benign neoplasm of right breast
CPT/HCPCS: 99213

== ENCOUNTER → 2024-05-31 15:17 | Outpatient (BNVA) | payer OTHER, SELFPAY | PROVIDERS: Visit Provider Surgery | DX: N63.11 Unspecified lump in the right breast, upper outer quadrant (principal); R92.8 Other abnormal and inconclusive findings on diagnostic imaging of breast; D24.1 Benign neoplasm of right breast | CPT/HCPCS: 99212 ==

== ENCOUNTER 2024-09-18 11:23 | Outpatient (AMB) | payer OTHER, SELFPAY ==
--- NOTE | 2024-09-18 11:34 | MHC.OFFVIS ---
Vital Signs 09/18/24 11:37 Height 5 ft 7 in Weight 136 lb BMI 21.3 BP 102/64 Intake Visit Reasons: Nexplanon issues do not risx3 Stitchdown Toe Former Required: Yes Stitchdown Toe Former Language: Glost Kiln Operator Services: Stitchdown Toe Former Present (in person) Stitchdown Toe Former Name: Apryl CHAUDHARI Information Interpreted: non-clinical & clinical Accompanied by: Self / Same As Patient Allergies No Known Allergies Allergy (Verified 09/18/24 11:38) Is last menstrual period known: Yes Last menstrual period: 09/16/24 HPI Comments Details: Presenting to discuss different options of control. The patient has been using Nexplanon for the last 9 years last insertion was January 2022 [facility] Medical History Headache No pertinent past medical history Surgical History History of Family History Mother No problems noted. Father No problems noted. Social History Housing: Apartment Alcohol intake: current Alcohol intake frequency: holidays/special occasions only Alcohol type: beer Patient Tobacco Use Status: Former Tobacco user Tobacco use type: Cigarette e-Cigarette/Vaping Use: Never Used Second Hand Smoke Exposure: No service: No Current occupational status: employed Current occupational exposures/hazards: No Cognitive needs: No Hearing needs: No Vision needs: Yes Female Reproductive History Menstrual Age of Menarche: 16 Duration of menses: 3-5 days Date of last menstrual period: 09/16/24 control method: implanted Total pregnancies: 2 Full term: 2 Number of Living Children: 2 Date of Mammogram: 05/23/24 Review of Systems Const All systems reviewed & are unremarkable except as noted in HPI and below Reports as per HPI and Reports no additional complaints GI Reports no additional complaints Reports no additional complaints Physical Exam Vital Signs: BMI result Body Mass Index 21.3 Assessment & Plan Assessment & Plan (1) Family planning: Code(s): Z30.09 - Encounter for other general counseling and advice on contraception Category: Social Hx Plan: Discussed with the patient the different options of control including control pills/Nuvaring, DMPA, different types of IUD ?s ( cu vs progesterone) , sterilization. All the pros, cons, risks and benefits of each were discussed with the patient. The patient decided to go ahead with Mirena IUD, so a more detailed discussion was carried on including mechanism of action, risks (infection, uterine perforation, failure with ectopic , septic AB, ovarian cyst and pelvic pain, increased breast cancer risk and others) benefits (efficient contraceptive method, others), GC/CG will be taken next visit and the patient was asked to schedule an appointment for Nexplanon removal and Mirena IUD insertion. All questions answered, the patient verbalized understanding Coding Level of Care Code New Pt Level 3 (21470) Diagnoses Family planning Z30.09
[2024-09-18 11:37] VITALS: BP 102/64; BMI 21.3
== END 2024-09-18 11:56 | disposition home or self-care (01) ==
LOC: HO.HWS 11:24
PROVIDERS: Visit Provider Obstetrics & Gynecology
DX: Z30.09 Encounter for other general counseling and advice on contraception (principal)
CPT/HCPCS: 99203

== ENCOUNTER → 2024-09-18 11:23 | Outpatient (BNVA) | payer OTHER, SELFPAY | PROVIDERS: Visit Provider Obstetrics & Gynecology | DX: Z30.09 Encounter for other general counseling and advice on contraception (principal) | CPT/HCPCS: 99202 ==

== ENCOUNTER 2024-10-09 13:10 | Outpatient (REF) | payer OTHER, SELFPAY ==
[2024-10-09 17:20] LABS: CT PCR NOT DETECTED (Not Detect.); NG PCR NOT DETECTED (Not Detect.)
== END 2024-10-09 13:11 | disposition home or self-care (01) ==
LOC: HO.LNP 13:10
PROVIDERS: Visit Provider Obstetrics & Gynecology
DX: Z30.46 Encounter for surveillance of implantable subdermal contraceptive (principal); Z30.430 Encounter for insertion of intrauterine contraceptive device; Z32.02 Encounter for pregnancy test, result negative
CPT/HCPCS: 58300; 81025; 87491; 87591; J7298

== ENCOUNTER 2024-10-09 13:10 | Outpatient (AMB) | payer OTHER, SELFPAY ==
--- NOTE | 2024-10-09 13:51 | MHC.OFFVIS ---
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 LMP was 3 days [facility] Medical History Headache No pertinent past medical history Surgical History History of Family History Mother No problems noted. Father No problems noted. Social History Housing: Apartment Alcohol intake: current Alcohol intake frequency: holidays/special occasions only Alcohol type: beer Patient Tobacco Use Status: Former Tobacco user Tobacco use type: Cigarette e-Cigarette/Vaping Use: Never Used Second Hand Smoke Exposure: No service: No Current occupational status: employed Current occupational exposures/hazards: No Cognitive needs: No Hearing needs: No Vision needs: Yes Female Reproductive History Menstrual Age of Menarche: 16 Physical Exam Vital Signs: BMI result Body Mass Index 21.3 Office Procedures IUD Insert/Removal Details Details: The patient is presenting for Mirena IUD insertion Urine test was done in the office and was negative; All the contraindications were excluded. The following possible complications were discussed with the patient: Intrauterine , Ectopic , Sepsis, Pelvic Infection, Irregular Bleeding and Amenorrhea, Perforation, Expulsion, Ovarian Cysts, Breast Cancer, The following adverse effects were discussed with the patient: alteration of menstrual bleeding pattern, including: unscheduled uterine bleeding decreased uterine bleeding increased scheduled uterine bleeding female genital tract bleeding ,amenorrhea , genital discharge , vulvovaginitis , breast pain , benign ovarian cyst and associated complications , dysmenorrhea , Gastrointestinal disorders abdominal/pelvic pain, headache/migraine , back pain , acne , depression Alternative options were discussed with the patient including but not limited: control pills, patch, NuvaRing, Depo-medroxyprogesterone acetate, Nexplanon, copper IUD, sterilization, vasectomy, others The procedure was explained in detail to patient , at the end patient signed the informed consent obtained. A no touch technique was used throughout the procedure. A speculum was placed into vagina and cervix was cleaned with betadine). A tenaculum was placed. A plastic sound was advanced through the external and internal os until it reached the fundus of the uterus, the depth was 8 cm. The sound was then withdrawn. The IUD was loaded in a sterile manner and advanced into position. The string was visualized and cut to 3 cm. Tenaculum site hemostatic. All instruments removed from vagina. Patient tolerated the procedure well. NO complications were noted. Patient was instructed to call for fever over 100.4, significant pain unrelieved by Motrin, IUD expulsion, heavy bleeding, or abnormal discharge. In addition, the following clinical considerations were discussed with the patient to call for removal: A stroke or heart attack ,Very severe or migraine headaches ,Unexplained fever ,Yellowing of the skin or whites of the eyes, as these may be signs of serious liver problems , or suspected , Pelvic pain or pain during sex ,HIV positive seroconversion in herself or her partner , Possible exposure to sexually transmitted infections Unusual vaginal discharge or genital sores , severe vaginal bleeding or bleeding that lasts a long time, or if she misses a menstrual period, Inability to feel Mirena's threads Counseled the patient that the IUD does not protect against STI's, recommended use of condoms for the first 7 days post insertion and explained to the patient that condoms are recommended for patients at risk for sexually transmitted infections. Informed the patient that Mirena IUD is FDA approved for 8 years for contraception for 5 years for the treatment of heavy menses Instructed the patient to schedule a Follow up appointment in 4 to 6 weeks following insertion. This note was generated with a voice recognition program. Some errors may have been overlooked during the review of this note. Sometimes these errors may affect the content or meaning of a given sentence. 14043-HQE Insertion Procedure code (CPT) selection complete Contraception Insert/Removal Details Details: Counseling/Consent: After discussing with the patient the risks of the procedure including bleeding, infection, scar tissue formation, , possible injury to blood vessels or nerves, chronic arm pain, blood transfusion, and irregular unpredictable bleeding Preopdx: Requesting Nexplanon removal Op: Nexplanon Removal Post op dx: same EBL= 10 cc Procedure: After discussing with the patient the risks of the procedure including bleeding, infection, scar tissue formation, the patient signed the consent and agreed with the plan; all questions answered. The patient was then put in the dorsal supine position with Left arm in which Nexplanon is located exposed. Then the area was scrubbed with betadine. Nexplanon was located next by palpation and the end closest to the elbow was marked with a sterile marker. 5cc 1% Xylocaine was used to anesthetize the area at the site near the tip of Nexplanon. Next, a 3 mm incision in the longitudinal direction of the arm at the tip of the implant was made and the Nexplanon was pushed toward the incision until the tip was visible. The implant was grasped with a curved mosquito forceps and pulled out gently. Then incision was closed with steri-strips approximating the edges and an adhesive bandage was applied. A pressure bandage was applied with sterile gauze to minimize bruising. At the end explained to the patient that she is not covered with contraception anymore and recommended for her to use another contraceptive method. Discharge instructions: Patient was instructed to call if any of the following occurs :temperature above 100.4, pain at the side of the incision, redness, discharge or gapping, arm pain or bleeding. All questions answered patient verbalized understanding . This note was generated with a voice recognition program. Some errors may have been overlooked during the review of this note. Sometimes these errors may affect the content or meaning of a given sentence. 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 intrauterine ea Total Dispensed Waste n/a n/a Nexplanon 68 mg subdermal implant Performing Provider: Adebayo Gamble MD Performing Location: [facility] [place] [facility] Documented (not given) by: Adebayo Gamble MD on 10/09/24 13:53 Dose Route Admin Location Dispensed Lot Number Expiration Date NDC Aviation Support Equipment Repairer 1 implant subdermal ea Total Dispensed Waste n/a n/a Results AMB Test Urine AMB Test Urine Negative Last Edit by Apryl Gilbert CMA on 10/09/24 13:53 Assessment & Plan Assessment & Plan (1) Nexplanon removal: Code(s): Z30.46 - Encounter for surveillance of implantable subdermal contraceptive Category: Medical Plan: Nexplanon removed, see procedure note (2) Encounter for insertion of Mirena IUD: Code(s): Z30.430 - Encounter for insertion of intrauterine contraceptive device Category: Medical Plan: Mirena IUD inserted, see procedure note Orders: Orders AMB Nexplanon/Implanon Insertion/Removal - Practice Supplied Today Z30.46 - Encounter for surveillance of implantable subdermal contraceptive AMB IUD Insertion/Removal - Practice Supplied Today Z30.430 - Encounter for insertion of intrauterine contraceptive device AMB HCG Urine Test Today Z32.02 - Encounter for test, result negative Medications: New Nexplanon (etonogestrel) 1 implant subdermal ONCE 1 ea 0RF NS Z30.46 - Encounter for surveillance of implantable subdermal contraceptive Mirena (levonorgestrel) 1 device intrauterine ONCE 1 ea 0RF Mirena IUD insertion NS Z30.430 - Encounter for insertion of intrauterine contraceptive device Coding Level of Care Code Procedure Only Diagnoses Nexplanon removal Z30.46 Encounter for insertion of Mirena IUD Z30.430 CPT Codes Details - CPT: 01800-UNW Insertion ([id number]) Details - Contraception: 70118 - Removal ([id number])
[2024-10-09 13:52] VITALS: BMI 21.3
--- OUTSIDE RECORDS SUMMARY | 2024-10-09 14:00 | XMS_ITS | Clinical Summary ---
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 Apply topically as [...] Preservative Free 11/10/2022 HPV 9 (Gardasil) 02/15/2023 Td (adult),2 Lf tetanus toxo id (TDVAX), preservative free 11/10/2022 Family History Medical History Relation Name Comments Thrombocytopenia Mother Relation Name Status Comments Brother Alive Father Alive Mother Sister Alive Social History Tobacco Use Types Packs/Day Years Used Date Smoking Tobacco: Never Smokeless Tobacco: Never Tobacco Cessation:Counseling Given: Yes Alcohol Use Standard Drinks/Week Comments Never 0 (1 standard drink = 0.6 oz pur e alcohol) Social Connections Answer Date Recorded How often do you feel lonely or isolated from th ose around you? 1 12/28/2023 Financial Resource Strain Answer Date R ecorded Hard to pay for: Food 1 12/28/2023 Stress Answer Date Recorded Do you feel these kinds of stress these days? 1 12/28/2023 Physical Activity Answer Date Recorded Physical Activity 0 09/02/2021 Food Insecurity Answer Date Recorded Within the past 12 months, t he food you bought just didn't last and you didn't have enough money to get more. 2 12/28/19 24 Transportation Needs Answer Date Record ed Hard to pay for: Transportation 1 12/28/2023 Housing Stability Answer Date Recorded Hard to pay for: Rent/Mortgage payment 1 12/28/2023 Safety and Environment Answer Date Gray rded How often does anyone, inclu ding family and friends, physically hurt you? 1 12/28/2023 Utilities Answer Date Recorded In the past 12 months has th e electric, gas, oil, or water company threatened to shut off services in your home? 2 12/28/2023 Employment Answer Date Recorded Stress 0 10/06/2021 Comments No Sex and Gender Information Value Date Recorded Sex Assigned at Female 10/06/2021 6:52 AM PDT Legal Sex Female 8:36 AM PDT Gender Identity Female 10/06/2021 6:52 AM PDT Sexual Orientation Straight 10/06/2021 6: 52 AM PDT Last Filed Vital Signs Vital Sign Reading Time Taken Comments Blood Pressure 108/64 06/11/2024 5:15 PM EDT Pulse 78 06/11/2024 5:15 PM EDT Temperature 37.2 C (98.9 F) 12/28/2023 4:03 PM EDT Respiratory Rate 16 12/28/2023 4:03 PM EDT Oxygen Saturation 92% 12/28/2023 4:03 PM EDT Inhaled Oxygen Concentration - - Weight 64.8 kg (142 lb 12.8 oz) 12/28/2023 4:03 PM EDT Height 167.6 cm (5' 6 ) 12/28/2023 4:03 PM EDT Body Mass Index 23.05 12/28/2023 4:03 PM EDT Plan of Treatment Upcoming Encounters Date Type Department Care Team (Late st Contact Info) Description 12/17/2024 4:20 PM EDT Office Visit [address] [phone] Elise Puga [address] [place] [address] Health Maintenance Due Date Last Done Comments HPV Screening 1982 Imm-Hepatitis B (1 of 3 - 19 + 3-dose series) 2001 Imm-DTaP/Tdap/Td (1 - Tdap) 11/11/2022 11/10/2022 [id number] ( - 2023- season) 2023 022 Anxiety Screening 11/11/2023 11/10/2022 Annual Wellness (Adult): Indicated (All Coverage) 02/16/2024 02/15/2023 Alcohol and Drug Screen 02/29/2024 05/23/19 24, 11/10/2022, 10/06/2021 Depression Annual Screen 02/29/2024 05/23/2023, 10/29 Breast Cancer Screening (Mammogram) 03/22/2024 03/22/2023, 10/26/2021 Diabetes Screening 10/06/2024 10/06/2021, 10/06/2021 Imm-Influenza (#1) 2024 11/10/2022 Relationship Safety Screening/Counseling 12/27/2024 12/28/2023, 11/10/2022, 10/06/2021 Tobacco Screening 12/27/2024 12/28/2023 Hypertension Screening (#1) 06/11/2025 Dental BW 06/13/2025 06/11/2024, 08/29, 03/24/2023, Additional history exists Dental Examination 06/13/2025 06/11/2024, 0 09/26/2023, 03/24/2023, Additional history exists Dental Perio Charting 06/13/2025 06/11/2024 , 09/26/2023, 03/24/2023, Additional history exists Dental Prophy 06/13/2025 06/11/2024, 08/29, 03/24/2023, Additional history exists Pap Smear 02/15/2026 02/15/2023 Lipid Screening 10/06/2026 10/06/2021 Cervical Cancer Screening 02/16/2028 Pap + HPV 02/16/2028 Dental FMX/Pano 09/27/2028 09/26/2023, 09/10/2021 HIV Screening Completed 10/06/2021 Hepatitis C Screening Completed 10/06/2021 Cervical Ablation/Cold-Knife Conization Discontinued Cervical Cryotherapy Discontinued Colposcopy Discontinued Endometrial Biopsy Discontinued Excision/Leep Discontinued HPV Genotyping Discontinued Vaginal Pap Discontinued Vulvoscopy Discontinued Procedures Procedure Name Priority Date/Time Associated Diagnosis Comments BITEWINGS - FOUR RADIOGRAPHIC IMAGES Routine 06/11/2024 3:40 PM EDT Encounter for dental examination PROPHYLAXIS - ADULT Routine 06/11/2024 3 :40 PM EDT Encounter for dental examination PERIODIC ORAL EVALUATION ESTABLISHED PATIENT Routine 06/11/2024 3:40 PM EDT Encounter for dental examination COMP PERIODONTAL EVALUATION - NEW/EST PATIENT Routine 09/26/2023 4:20 PM EDT Encounter for dental examination Caries PANORAMIC RADIOGRAPHIC IMAGE Routine 09/26/2023 4:20 PM EDT Encounter for dental examination Caries Defective dental hinduism REFERRAL FOR MAMMOGRAM Routine 03/22/2023 3:00 AM [...] 03/22/2023 3:00 AM EST Slim Quesada MD [facility] RFL MAMMO Edited Result - Final * THINPREP IMAGING PAP REFLEX HPV MRNA E6/E7, CT/GT (Q) (02/15/2023 4:01 PM EST) CHLAMYDIA TRACHOMATIS RNA, TMA NOT DETECTED NOT DETECTED [employer] NEISSERIA GONORRHOEAE RNA, TMA NOT DETECTED NOT DETECTED [employer] COMMENT [employer] CLINICAL INFORMATION See Note [employer] Comment:Routine exam LMP See Note [employer] Comment:[id number] PREV. PAP See Note [employer] Comment:NONE GIVEN PREV. BX See Note [employer] Comment:NONE GIVEN SOURCE See Note [employer] Comment:Cervix STATEMENT OF ADEQUACY See Note [employer] Comment: Satisfactory for evaluation. Endocervical/transformation zone component present. INTERPRETATION/RESU LT See Note [employer] [facility] Comment: Cytology Results: Negative for intraepithelial lesion or malignancy. COMMENT See Note [employer] Comment: This Pap test has been evaluated with computer assisted technology. LENS ENGRAVER See Note [facility] [email or web address] [facility] Comment: YP, CT(ASCP) CT screening location: [address] [address] COMMENT [facility] [place] [employer] Swab Cervix uteri structure / Unknown 02/15/2023 4:01 PM EST 02/17/2023 1:45 AM EST Narrative [facility] - 02/22/2023 11:57 AM EST EXPLANATORY NOTE: [...] test SurePath(TM) specimens have been determined by [facility]. The modifications have not been cleared or approved by the FDA. This assay has been validated pursuant to the CLIA regulations and is used for clinical purposes. For additional information, please refer to https://education.XipLink/faq/LGP362 (This link is being provided for information/ educational purposes only.) Slim Quesada MD LAB - PATHOLOGY AND CYTOLOGY AMB ULATORY Final Result [facility] [address] [place] [address], [facility] [address] [address] * Hep C Antibody with Reflex HCV RNA (10/06/2021 10:30 AM EDT) HEPATITIS C ANTIBODY NON-REACT RUBY NON-REACT RUBY [facility] SIGNAL TO CUT-OFF 0.15 <1.00 [employer] Comment: HCV antibody was non-reactive. There is no laboratory evidence of HCV infection. In most cases, no further action is required. However, if recent HCV exposure is suspected, a test for HCV RNA (test code 32986) is suggested. For additional information please refer to http://Sitestar.XipLink/faq/FMO45x5 (This link is being provided for informational/ educational purposes only.) Blood Blood / Unknown 10/06/2021 1 0:30 AM EDT 10/06/2021 10:30 AM EDT [employer] LAB - BLOOD DRAW Final Resul t Performing Organization Address [facility] Co de Phone Number [facility] [address] [address], [facility] [address] [address] * HIV Ag & Ab with Reflex Western Blot (10/06/2021 10:30 AM EDT) HIV AG/AB, 4TH GEN NON-REAC TIVE NON-REAC TIVE [employer] [facility] Comment: HIV-1 antigen and HIV-1/HIV-2 antibodies were not detected. There is no laboratory evidence of HIV infection. PLEASE NOTE: This information has been disclosed to you from records whose confidentiality may be protected by state law. If your state requires such protection, then the state law prohibits you from making any further disclosure of the information without the specific written consent of the person to whom it pertains, or as otherwise permitted by law. A general authorization for the release of medical or other information is NOT sufficient for this purpose. For additional information please refer to http://Sitestar.[employer].[facility]1 Labs/faq/GOA126 (This link is being provided for informational/ educational purposes only.) The performance of this assay has not been clinically validated in patients less than 2 years old. Blood Blood / Unknown 10/06/2021 1 0:30 AM EDT 10/06/2021 10:30 AM EDT e|tab PA-C LAB - BLOOD DRAW Final Resul t Performing Organization Address [facility]/ZIP Co de Phone Number [facility] [address] [address], [employer] [address] [place] [address] * Lipid Panel (with Reflex Direct LDL) (10/06/2021 10:30 AM EDT) CHOLESTEROL, TOTAL 143 <200 mg/dL [facility] HDL CHOLESTEROL 71 > OR = 50 mg/dL [facility] TRIGLYCERIDES 36 <150 mg/dL [facility] LDL-CHOLESTEROL 62 99 mg/dL (calc) [facility] Comment: Reference range: <100 Desirable range <100 mg/dL for primary prevention; <70 mg/dL for patients with CHD or diabetic patients with > or = 2 CHD risk factors. LDL-C is now calculated using the Ashkan calculation, which is a validated novel method providing better accuracy than the Friedewald equation in the estimation of LDL-C. Cameron ESPINOZA et al. YASIR. 2013;310(19): 7121-4036 (http://education.AgInfoLink/faq/PLW868) CHOL/HDLC RATIO 2.0 <5.0 (calc) [facility] NON-HDL CHOLESTEROL 72 <130 mg/dL (calc) [facility] Comment: For patients with diabetes plus 1 major ASCVD risk factor, treating to a non-HDL-C goal of <100 mg/dL (LDL-C of <70 mg/dL) is considered a therapeutic option. Blood Blood / Unknown 10/06/2021 1 0:30 AM EDT 10/06/2021 10:30 AM EDT us Ana Paula Grier PA-C LAB - BLOOD DRAW Final Resul t [facility] [address] [address], [place] [facility] [address] [address] * (ABNORMAL) CMP (10/06/2021 10:30 AM EDT) GLUCOSE 82 65 - 99 mg/dL [facility] Comment: Fasting reference interval UREA NITROGEN (BUN) 9 7 - 25 mg/dL [facility] CREATININE (blood) 0.68 0.50 - 0.97 mg/dL [facility] EGFR 114 > OR = 60 mL/min/1 .73m2 [facility] Comment: The eGFR is based on the CKD-EPI 2020 equation. To calculate the new eGFR from a previous Creatinine or Cystatin C result, go to https://www.kidney.org/professionals/ kdoqi/gfr%5Fcalculator BUN/CREATININE RATIO NOT APPLICABLE 6 - 22 [facility] SODIUM 138 135 - 146 mmol/L [facility] POTASSIUM 4.3 3.5 - 5.3 mmol/L [facility] CHLORIDE 106 98 - 110 mmol/L [facility] CARBON DIOXIDE 26 20 - 32 mmol/L [facility] CALCIUM 9.4 8.6 - 10.2 mg/dL [facility] PROTEIN, TOTAL 6.6 6.1 - 8.1 g/dL [facility] ALBUMIN 4.6 3.6 - 5.1 g/dL [facility] GLOBULIN 2.0 1.9 - 3.7 g/dL (calc) [facility] ALBUMIN/GLOBUL IN RATIO 2.3 1.0 - 2.5 (calc) [facility] BILIRUBIN, TOTAL 1.5(H) 0.2 - 1.2 mg/dL [facility] ALKALINE PHOSPHATASE 44 31 - 125 U/L [facility] AST 14 10 - 30 U/L [facility] ALT 20 6 - 29 U/L [facility] Blood Blood / Unknown 10/06/2021 1 0:30 AM EDT 10/06/2021 10:30 AM EDT Ana Paula Grier PA-C LAB - BLOOD DRAW Edited Resu lt - Final [facility] [address] [address], [facility] [address] [address] from Last 3 Months or Most Recently Relevant to Health Maintenance Insurance [place] [address] [employer] 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
== END 2024-10-09 14:06 | disposition home or self-care (01) ==
LOC: HO.HWS 13:11
PROVIDERS: Visit Provider Obstetrics & Gynecology
DX: Z30.46 Encounter for surveillance of implantable subdermal contraceptive (principal); Z30.430 Encounter for insertion of intrauterine contraceptive device; Z32.02 Encounter for pregnancy test, result negative
CPT/HCPCS: 58300

== ENCOUNTER 2024-11-21 14:14 | Outpatient (AMB) | payer OTHER, SELFPAY ==
--- NOTE | 2024-11-21 14:26 | MHC.OFFVIS ---
Vital Signs 11/21/24 14:32 Height 5 ft 7 in Weight 136 lb BMI 21.3 Intake Visit Reasons: 6 week IUD Check Allergies No Known Allergies Allergy (Verified 11/21/24 14:39) HPI Comments Details: The patient is presenting for IUD check after 1 st period following IUD insertion. The patient has no complaints periods are normal, not painful, and flow is light PFS Medical History Headache No pertinent past medical history Surgical History History of Family History Mother No problems noted. Father No problems noted. Social History Housing: Apartment Alcohol intake: current Alcohol intake frequency: holidays/special occasions only Alcohol type: beer Patient Tobacco Use Status: Former Tobacco user Tobacco use type: Cigarette e-Cigarette/Vaping Use: Never Used Second Hand Smoke Exposure: No service: No Current occupational status: employed Current occupational exposures/hazards: No Cognitive needs: No Hearing needs: No Vision needs: Yes Female Reproductive History Menstrual Age of Menarche: 16 Review of Systems Const All systems reviewed & are unremarkable except as noted in HPI and below Physical Exam Vital Signs: BMI result Body Mass Index 21.3 General: Yes no CVA tenderness External Female Exam: normal external appearance and normal appearance of the urethra Speculum Exam - Vagina: normal appearance of the vagina, normal palpation, no lesions and no masses Speculum Exam - Cervix: normal appearance of the cervix, normal palpation, no lesions, no masses, nontender and Other cervical findings present (IUD thread seen) Bimanual exam- vagina & uterus: normal bimanual exam, normal palpation, uterine size normal, normal palpation, uterine shape normal, No Cervical tenderness present and non-tender Bimanual Exam- Adnexa, other: normal adnexae Back/Spine/Pelvis Back: no CVA tenderness Assessment & Plan Assessment & Plan (1) IUD check up: Code(s): Z30.431 - Encounter for routine checking of intrauterine contraceptive device Category: Medical Plan: UPT done in the office was negative. Discussed with the patient the finding on physical exam, IUD string in place, the patient was reassured. Instructions given to patient to call in case of temperature above 100.4, severe cramping/pelvic pain, abnormal discharge or abnormal uterine bleeding or if she misses her menstrual cycle. Otherwise follow-up at her annual exam appointment. All questions answered, the patient verbalized understanding. Coding Level of Care Code Est Pt Level 3 (13263) Diagnoses IUD check up Z30.545
[2024-11-21 14:32] VITALS: BMI 21.3
--- OUTSIDE RECORDS SUMMARY | 2024-11-21 17:01 | XMS_ITS | Clinical Summary ---
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 Apply topically as [...] Description 12/17/2024 4:20 PM EDT Office Visit [facility] [address] [place] [id number] Elise Puga [address] [place] [address] Health Maintenance Due Date Last Done Comments HPV Screening 1982 Imm-Hepatitis B (1 of 3 - 19 + 3-dose series) 2001 Imm-DTaP/Tdap/Td (1 - Tdap) 11/11/2022 11/10/2022 Imm-HPV (2 - 3-dose SCDM series) 03/15/2023 02/16/20 Anxiety Screening 11/11/2023 11/10/2022 Annual Wellness (Adult): Indicated (All Coverage) 02/16/2024 02/15/2023 Alcohol and Drug Screen 02/29/2024 05/23/19 24, 11/10/2022, 10/06/2021 Depression Annual Screen 02/29/2024 05/23/2023, 10/29 Breast Cancer Screening (Mammogram) 03/22/2024 03/22/2023, 10/26/2021 Diabetes Screening 10/06/2024 10/06/2021, 10/06/2021 [id number] ( season) 2024 022 Imm-Influenza (#1) 2024 11/10/2022 Relationship Safety Screening/Counseling [...] Encounter for dental examination Caries Defective dental sabianism REFERRAL FOR MAMMOGRAM Routine 03/22/2023 3:00 AM [...] 03/22/2023 3:00 AM EST Slim Quesada MD [facility] [place] Edited Result - Final * [facility]IN[facility]AG[facility] PAP REFLEX HPV MRNA E6/E7, CT/GT (Q) (02/15/2023 4:01 PM EST) CHLAMYDIA TRACHOMATIS RNA, TMA NOT DETECTED NOT DETECTED [facility] NEISSERIA GONORRHOEAE RNA, TMA NOT DETECTED NOT DETECTED [facility] COMMENT [facility] CLINICAL INFORMATION See Note [facility] Comment:Routine exam LMP See Note [facility] Comment:[id number] PREV. PAP See Note [facility] Comment:NONE GIVEN PREV. BX See Note [employer] [facility] Comment:NONE GIVEN SOURCE See Note [employer] Comment:Cervix STATEMENT OF ADEQUACY See Note [facility] Comment: Satisfactory for evaluation. Endocervical/transformation zone component present. INTERPRETATION/RESU LT See Note [facility] Comment: Cytology Results: Negative for intraepithelial lesion or malignancy. COMMENT See Note [facility] Comment: This Pap test has been evaluated with computer assisted technology. BUSH HOG OPERATOR See Note [facility] Comment: YP, CT(ASCP) CT screening location: [place] [address] COMMENT [facility] Swab Cervix uteri structure / Unknown 02/15/2023 4:01 PM EST 02/17/2023 1:45 AM EST [address] [facility] - 02/22/2023 11:57 AM EST EXPLANATORY NOTE: [...] test SurePath(TM) specimens have been determined by [employer]. The modifications have not been cleared or approved by the FDA. This assay has been validated pursuant to the CLIA regulations and is used for clinical purposes. For additional information, please refer to https://education.Xoomsys/faq/OXE163 (This link is being provided for information/ educational purposes only.) Slim Quesada MD LAB - PATHOLOGY AND CYTOLOGY AMB ULATORY Final Result [facility] [address] [address], [facility] [address] [address] * Hep C Antibody with Reflex HCV RNA (10/06/2021 10:30 AM EDT) HEPATITIS C ANTIBODY NON-REACT RUBY NON-REACT RUBY [facility] SIGNAL TO CUT-OFF 0.15 <1.00 [facility] Comment: HCV antibody was non-reactive. There is no laboratory evidence of HCV infection. In most cases, no further action is required. However, if recent HCV exposure is suspected, a test for HCV RNA (test code 00514) is suggested. For additional information please refer to http://[employer].Xoomsys/faq/ONE93u3 (This link is being provided for informational/ educational purposes only.) Blood Blood / Unknown 10/06/2021 1 0:30 AM EDT 10/06/2021 10:30 AM EDT [email or web address] PA-C LAB - BLOOD DRAW Final Resul t Performing Organization Address [facility] Co de Phone Number [facility] [address] [address], [facility] [address] [address] * HIV Ag & Ab with Reflex Western Blot (10/06/2021 10:30 AM EDT) HIV AG/AB, 4TH GEN NON-REAC TIVE NON-REAC TIVE [facility] Comment: HIV-1 antigen and HIV-1/HIV-2 antibodies were [...] purpose. For additional information please refer to http://[employer].Xoomsys/faq/FJA948 (This link is being provided for informational/ educational purposes only.) The performance of this assay has not been clinically validated in patients less than 2 years old. Blood Blood / Unknown 10/06/2021 1 0:30 AM EDT 10/06/2021 10:30 AM EDT [email or web address] PA-C LAB - BLOOD DRAW Final Resul t Performing Organization Address City/[facility]/ZIP Co de Phone Number [employer] [address] [address], [facility] [address],[place] [address] * Lipid Panel (with Reflex Direct LDL) (10/06/2021 10:30 AM EDT) CHOLESTEROL, TOTAL 143 <200 mg/dL [facility] HDL CHOLESTEROL 71 > OR = 50 mg/dL [facility] TRIGLYCERIDES 36 <150 mg/dL [facility] LDL-CHOLESTEROL 62 99 mg/dL (calc) [employer] Comment: Reference range: <100 Desirable range <100 mg/dL for primary prevention; <70 mg/dL for patients with CHD or diabetic patients with > or = 2 CHD risk factors. LDL-C is now calculated using the Ashkan calculation, which is a validated novel method providing better accuracy than the Friedewald equation in the estimation of LDL-C. Cameron ESPINOZA et al. YASIR. 2013;310(19): 9441-2188 (http://education.Mobicow/faq/EZR998) CHOL/HDLC RATIO 2.0 <5.0 (calc) [facility] NON-HDL CHOLESTEROL 72 <130 mg/dL (calc) [facility] Comment: For patients with diabetes plus 1 major ASCVD risk factor, treating to a non-HDL-C goal of <100 mg/dL (LDL-C of <70 mg/dL) is considered a therapeutic option. Blood Blood / Unknown 10/06/2021 1 0:30 AM EDT 10/06/2021 10:30 AM EDT us Ana Paula Grier PA-C LAB - BLOOD DRAW Final Resul t [facility] [address] [address], [facility] [address],[facility] [place] [address] * (ABNORMAL) CMP (10/06/2021 10:30 AM EDT) GLUCOSE 82 65 - 99 mg/dL [facility] Comment: Fasting reference interval UREA NITROGEN (BUN) 9 7 - 25 mg/dL [facility] CREATININE (blood) 0.68 0.50 - 0.97 mg/dL [facility] EGFR 114 > OR = 60 mL/min/1 .73m2 [facility] Comment: The eGFR is based on the CKD-EPI 2020 equation. To calculate the new eGFR from a previous Creatinine or Cystatin C result, go to https://www.kidney.org/professionals/ kdoqi/gfr%5Fcalculator BUN/CREATININE RATIO NOT APPLICABLE 6 - 22 [facility] SODIUM 138 135 - 146 mmol/L [facility] POTASSIUM 4.3 3.5 - 5.3 mmol/L [facility] CHLORIDE 106 98 - 110 mmol/L [facility] CARBON DIOXIDE 26 20 - 32 mmol/L [facility] CALCIUM 9.4 8.6 - 10.2 mg/dL [facility] PROTEIN, TOTAL 6.6 6.1 - 8.1 g/dL [facility] ALBUMIN 4.6 3.6 - 5.1 g/dL [facility] GLOBULIN 2.0 1.9 - 3.7 g/dL (calc) [facility] ALBUMIN/GLOBUL IN RATIO 2.3 1.0 - 2.5 (calc) [facility] BILIRUBIN, TOTAL 1.5(H) 0.2 - 1.2 mg/dL [facility] ALKALINE PHOSPHATASE 44 31 - 125 U/L [facility] AST 14 10 - 30 U/L [facility] ALT 20 6 - 29 U/L [facility] Blood Blood / Unknown 10/06/2021 1 0:30 AM EDT 10/06/2021 10:30 AM EDT us Ana Paula Grier PA-C LAB - BLOOD DRAW Edited Resu lt - Final [facility] [address] [address], [facility] [address] [address] from Last 3 Months or Most Recently Relevant to Health Maintenance [place] MED[place] [address] [employer] Care Teams Germination Testing Manager Relationship Specialty Start Date End Date Ana Paula Grier PA-C [facility] [place] [address] PCP - General Internal Medicine 10/06/21
== END 2024-11-21 14:40 | disposition home or self-care (01) ==
LOC: HO.HWS 14:14
PROVIDERS: Visit Provider Obstetrics & Gynecology
DX: Z30.431 Encounter for routine checking of intrauterine contraceptive device (principal)
CPT/HCPCS: 99213

== ENCOUNTER → 2024-11-21 14:14 | Outpatient (BNVA) | payer OTHER, SELFPAY | PROVIDERS: Visit Provider Obstetrics & Gynecology | DX: Z30.431 Encounter for routine checking of intrauterine contraceptive device (principal) | CPT/HCPCS: 99212 ==

== ENCOUNTER → 2024-12-24 08:00 | Outpatient (BNV) | payer OTHER, SELFPAY | PROVIDERS: Visit Provider Radiology Body Imaging | DX: N63.13 Unspecified lump in the right breast, lower outer quadrant (principal) | CPT/HCPCS: 76642 ==

== ENCOUNTER 2024-12-24 08:04 | Outpatient (REF) | payer OTHER, SELFPAY ==
--- NOTE | ~2024-12-24 | US_ITS ---
EXAMINATION: US DIAGNOSTIC ULTRASOUND BREAST, RIGHT CLINICAL INFORMATION: 6-month follow-up of incidental right breast oval hypoechoic cyst or solid mass at 7:00 position at 2 cm from the nipple described on the mammogram/ultrasound workup on April 26, 2024. COMPARISON: Bilateral diagnostic mammogram on April 26, 2024. Right ultrasound on April 26, 2024. Ultrasound-guided needle core biopsy on May 23, 2024. FINDINGS: Targeted ultrasound of the right breast was performed at the location of the previously described sonographic finding. The survey shows a 0.5 x 0.2 x 0.4 cm oval hypoechoic cyst or solid mass at 7 o'clock position 2 cm from the nipple. Prior measurements were 0.5 x 0.4 x 0.2 cm in March 2024. No internal vascularity demonstrated with color Doppler evaluation. Results are provided to the patient at time of visit by the technologist. US/US Breast RT Limited Mamm Only IMPRESSION: Right breast: 0.5 cm oval hypoechoic cyst or solid mass at 7 o'clock position 2 cm from the nipple, unchanged from March 2024. Probably benign. A short-term follow-up is recommended in March 2025, as bilateral diagnostic mammogram and right breast ultrasound. ASSESSMENT: Category 3: Probably benign RECOMMENDATION: 6 Month F/U This patient's information was entered into a reminder system with a target due date for their next mammogram. Electronically signed by: Claudia Campoverde MD 12/24/2024 08:30 AM EDT
== END 2024-12-24 08:05 | disposition home or self-care (01) ==
LOC: HO.MAMMO 08:04
PROVIDERS: Visit Provider Surgery
DX: R92.8 Other abnormal and inconclusive findings on diagnostic imaging of breast (principal); N60.01 Solitary cyst of right breast
CPT/HCPCS: 76642

== ENCOUNTER 2025-01-16 14:22 | Outpatient (AMB) | payer OTHER, SELFPAY ==
[2025-01-16 14:39] VITALS: BP 100/68; PULSE 82; TEMP 36.3; O2SAT 99; BMI 21.5
--- NOTE | 2025-01-16 14:39 | A.OFFPC_ITS ---
Vital Signs 01/16/25 14:39 Height 5 ft 7 in Weight 137 lb 8 oz BMI 21.5 BP 100/68 Blood Pressure Location Lt brachial Position Sitting Pulse 82 Pulse Source Pulse Oximeter Temp 97.3 F Temp Source Temporal Artery Scan Pulse Oximetry (%) 99 Oxygen Delivery Method Room Air Intake Visit Reasons: annual exam Turner Machine Required: Yes Turner Machine Language: British Accompanied by: Self / Same As Patient Allergies No Known Allergies Allergy (Verified 01/16/25 14:59) Medication List - Last Reconciled 01/16/25 by Rowan Astudillo PA-C levonorgestrel (Mirena) intrauterine Tobacco use date assessed: 03/08/24 Dental Screening Dental Screen Date: 03/08/24 Did you have a dental visit in the last 12 months?: Yes Did you have a dental problem in the last 6 months where you did not have access to dental care?: No Was dental information given to patient?: Patient has dentist HPI annual exam HPI Details 44 year old female with past medical his tory of headache last seen 02/2024 coming in for annual exam. 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 Presenting for evaluation of headaches, stomach pain, and leg pain. The patient reports a week-long, terrible headache associated with photophobia and phonophobia. She has tried acetaminophen, ibuprofen, and Excedrin without relief. She experienced nausea due to the severity of the headache pain. Headache has been improving throughout the week. She denies any chest pain, shortness of breath, blurred vision, or double vision. The patient complains of significant acid reflux that occurs with almost every food, causing stomach pressure and pain. Symptoms occur at night, including coughing and gas. She has tried natural remedies and Tums without success and has previously used omeprazole sparingly as it was not prescribed. She has concern for H.Pylori. The patient reports pain in her veins and left knee, which she attributes to standing for long periods at work. She has compression socks but does not wear them often due to discomfort. She had a vein procedure in [facility] over 12 years ago that provided relief, but symptoms have returned. [facility] Medical History Headache No pertinent past medical history Surgical History History of Family History Mother No problems noted. Father No problems noted. Social History Housing: Apartment Alcohol intake: current Alcohol intake frequency: holidays/special occasions only Alcohol type: beer Patient Tobacco Use Status: Former Tobacco user Tobacco use type: Cigarette e-Cigarette/Vaping Use: Never Used Second Hand Smoke Exposure: No service: No Current occupational status: employed Current occupational exposures/hazards: No Cognitive needs: No Hearing needs: No Vision needs: Yes Female Reproductive History Menstrual Age of Menarche: 16 Questionnaire PHQ-9 Over the last 2 weeks, how often have you been bothered by any of the following problems? 1. Little interest or pleasure in doing things: not at all 2. Feeling down, depressed, or hopeless: not at all 3. Trouble falling or staying asleep, or sleeping too much: not at all 4. Feeling tired or having little energy: not at all 5. Poor appetite or overeating: not at all 6. Feeling bad about yourself - or that you are a failure or have let yourself or your family down: not at all 7. Trouble concentrating on things, such as reading the newspaper or watching television: not at all 8. Moving or speaking so slowly that other people could have noticed. Or the opposite - being so fidgety or restless that you have been moving around a lot more than usual: not at all 9. Thoughts that you would be better off or of hurting yourself in some way: not at all Total score: 0 Source: Developed by Drs. Leighton Swenson, Keeley Groves, Gaurav Ruiz and colleagues, with an educational charles from [employer] ([employer]). Thrive Questionnaire Date Thrive assessed: 03/01/24 I am a: Patient What is your living situation today?: I have a steady place to live Within the past 12 months, did the food you bought not last and you didn't have the money to get more?: Never true Within the past 12 months, did you worry whether your food would run out before you got money to buy more?: Never true Do you have trouble paying for medicines?: No Do you have trouble getting transportation to medical appointments?: No Do you have trouble paying your heating and electricity bill?: No Do you have trouble taking care of your child, family member or friend?: No Do you have trouble with day-to-day activities such as bathing, preparing meals, shopping, managing finances, etc.?: No Are you currently unemployed and looking for a job?: No Are you interested in more education?: Yes Please select the resources that you would like help with: Food THRIVE Score: 0 AUDIT C Alcohol Use Questionnaire (AUDIT-C) 1. How often do you have a drink containing alcohol?: Monthly or less 2. How many drinks containing alcohol do you have on a typical day when you are drinking?: 1 or 2 3. How often do you have six or more drinks on one occasion?: Never Total Score: 1 CRUZITO-7 AMB Questionnaire CRUZITO-7 Date CRUZITO - 7 assessed: 03/08/24 Feeling nervous, anxious, or on edge: 0 = Not at all Not being able to stop or control worryin = Not at all Worrying too much about different things: 0 = Not at all Trouble relaxin = Not at all Being so restless that it is hard to sit still: 0 = Not at all Becoming easily annoyed or irritable: 0 = Not at all Feeling afraid as if something awful might happen: 0 = Not at all Total CRUZITO-7 score (0-4 normal; 5-9 mild; 10-14 moderate; 15-21 severe): 0 Source: Developed by Drs. Leighton Swenson, Keeley Groves, Gaurav Ruiz and colleagues, with an educational charles from [employer] ([employer]). Review of Systems Const Denies body aches, Denies fatigue, Denies fever(s), Denies frequent falls, Reports headache(s) and Denies weakness Eyes Reports no additional complaints and Denies change in vision ENT Denies dizziness, Denies facial pain, Reports headache(s) and Denies nasal congestion Card Denies chest pain, Denies leg edema, Denies lightheadedness and Denies dyspnea Resp Denies cough and Denies dyspnea GI Reports abdominal pain (epigastric w/ GERD), Denies constipation, Reports dyspepsia, Reports heartburn, Denies diarrhea, Denies nausea and Denies vomiting Denies urinary frequency, Denies dysuria, Denies urinary hesitancy and Denies urinary urgency Musc Reports as per HPI, Denies back pain and Denies myalgias Skin/Breast Reports system reviewed and no additional complaints, except as documented Neuro Denies dizziness, Denies frequent falls, Reports headache(s) and Denies weakness Psych Reports no additional complaints Endo Denies fatigue Physical exam (Primary Care) Vital Signs: Last Vital Signs Temp 97.3 F 01/16/25 14:39 Pulse 82 01/16/25 14:39 BP 100/68 01/16/25 14:39 Pulse Ox 99 01/16/25 14:39 Oxygen Delivery Method Room Air 01/16/25 14:39 BMI result Body Mass Index 21.5 Tobacco/Smoking Status: Tobacco use Status Tobacco use date assessed 03/08/24 01/16/25 14:48 Patient Tobacco Use Status Former Tobacco user 01/16/25 14:48 Tobacco use type Cigarette 01/16/25 14:48 e-Cigarette/Vaping Use Never Used 01/16/25 14:48 PHQ-9: PHQ-9 Score PHQ-9: Total score 0 01/16/25 14:52 Thrive Assessment: Date of Thrive Assessment Date Thrive assessed 03/01/24 01/16/25 14:48 Const General: cooperative, healthy appearing, comfortable and no acute distress Orientation/consciousness: patient oriented x3 HENMT Head: Yes normocephalic Ears: hearing grossly normal bilaterally General nose exam: Normal external nose present Eyes General: appearance normal, both eyes and all related structures Conjunctivae: conjunctivae normal Neck Neck: Yes full ROM and Yes no lymphadenopathy Resp Effort & Inspection: normal respiratory effort Auscultation: clear to auscultation bilaterally, no crackles, no rales, no rhonchi and no wheezes Cardio Rate: regular rate Rhythm: regular rhythm Skin General skin exam: no rashes or lesions noted Neuro General: patient oriented x3 Gait exam (Neuro): Normal gait present Extrem Other: Multiple spider veins around bilateral ankles. Mild varicosities of bilateral lower extremities. Intact pulses in bilateral lower extremities. No swelling, redness, warmth of bilateral lower extremities General: Yes normal to inspection, Yes full ROM and No edema Psych Affect: normal affect Attitude: cooperative Insight: Good insight present (Psych) Judgement: Good judgement present (Psych) Coding Level of Care Code Est Pt Level 4 (96914) Diagnoses Varicose veins of both lower extremities I83.93 Headache R51.9 GERD (gastroesophageal reflux disease) K21.9 Back pain M54.9 Left knee pain M25.562 Assessment & Plan Assessment & Plan (1) Varicose veins of both lower extremities: Code(s): I83.93 - Asymptomatic varicose veins of bilateral lower extremities Category: Medical Plan: The patient has recurrent varicose veins, having had a prior procedure over 12 years ago. A referral will be placed for vascular surgery to evaluate for further treatment. The patient was encouraged to wear compression socks despite her discomfort with them. (2) Headache: Code(s): R51.9 - Headache, unspecified Category: Medical Plan: The patient's symptoms of a severe, week-long headache with photophobia and phonophobia, unresponsive to [id number] analgesics, are consistent with a migraine. A prescription for sumatriptan will be sent to the pharmacy. She is instructed to take one dose and a second dose two hours later if symptoms do not resolve. The patient was counseled on migraine hygiene, including getting enough sleep, drinking plenty of water, and not skipping meals. She should send a portal message if the medication is ineffective or if she develops worsening symptoms such as blurred or double vision. (3) GERD (gastroesophageal reflux disease): Code(s): K21.9 - Gastro-esophageal reflux disease without esophagitis Category: Medical Plan: Avoid trigger foods such as citrus, tomato products, soda, caffeine, spicy foods and other foods that may be irritating to your stomach. Avoid laying flat 3-4 h ours after eating and elevate the head of the bed 30 degrees to prevent acid from moving into the esophagus. Testing for H.Pylori ordered and plan to start Omeprazole. (4) Back pain: Code(s): M54.9 - Dorsalgia, unspecified Category: Medical Plan: Patient complaining of intermittent back pain with excessive activity. She is requesting a prescription for diclofenac as she has a prescription from [facility] that she use very sparingly and finds this helpful. Prescription was sent today. Advised to take with plenty of food and avoid with the use of other NSAIDs (5) Left knee pain: Code(s): M25.562 - Pain in left knee Category: Medical Plan: The left knee pain, characterized by morning stiffness that improves with activity, is likely not arthritic. She is advised to perform gentle stretching exercises in the morning to warm up the knee. Plan This note was constructed using voice recognition software. While every effort has been made to ensure accuracy and atmospheric scientist, still areas may have been included sometimes these areas may affect the content or meeting of the given symptoms. Total time spent caring for the patient today was 30 minutes. This includes time spent before the visit reviewing the chart, time spent during the visit, and time spent after the visit and documentation. Patient was informed and verbally consented to the use of an ambient scribe for clinic note documentation during this visit. Orders: Orders H pylori Ag Stool 01/16/25 K21.9 - Gastro-esophageal reflux disease without esophagitis Referrals Vascular Surgery Referral I83.93 - Asymptomatic varicose veins of bilateral lower extremities Medications: New omeprazole 40 mg PO DAILY 90 caps 0RF sumatriptan succinate take 1 tab at onset of headache; if no relief may repeat 1 tab after at least 2 hrs; max = 4 tabs/24 hr PO 14 tabs 0RF diclofenac sodium 50 mg PO DAILY 20 tabs 0RF
== END 2025-01-16 15:35 | disposition home or self-care (01) ==
DX: I83.93 Asymptomatic varicose veins of bilateral lower extremities (principal); R51.9 Headache, unspecified; K21.9 Gastro-esophageal reflux disease without esophagitis; M54.9 Dorsalgia, unspecified; M25.562 Pain in left knee

== ENCOUNTER → 2025-01-16 14:22 | Outpatient (BNVA) | payer OTHER, SELFPAY | DX: I83.93 Asymptomatic varicose veins of bilateral lower extremities (principal); K21.9 Gastro-esophageal reflux disease without esophagitis; R51.9 Headache, unspecified; M54.9 Dorsalgia, unspecified; M25.562 Pain in left knee | CPT/HCPCS: 99212 ==

== ENCOUNTER 2025-01-18 12:00 | Outpatient (REF) | payer OTHER, SELFPAY | END 2025-01-18 12:01 | disposition home or self-care (01) | LOC: HO.LNP 12:00 | DX: K21.9 Gastro-esophageal reflux disease without esophagitis (principal) | CPT/HCPCS: 87338 ==